=== PATIENT | male | born 1955 | race African-American/Black ===

== ENCOUNTER 2018-01-02 18:03 | Inpatient (IN) | payer OTHER ==
[~2018-01-02] VITALS: Ht 175.3 cm; Wt 87.1 kg
[~2018-01-02 18:03] MED LIST: ACETAMINOPHEN325 M1 PO; ALTACE5 M1 PO; AMLODIPINE BESY10 MG PO; ANTIBIOTIC PO; ARIXTRA2.5 MG/0.5 SQ; ASPIRIN EC81 M1 PO; ASPIRIN81 M2 PO; ATORVASTATIN CA40 MG PO; COUMADIN 3 MG TA3 M1 PO; EFFIENT10 MG PO; GABAPENTIN 100100 MG; IBUPROFEN 400400 M2 PO; INVOKANA300 MG PO; LANTUS SUBQ; LIPITOR40 MG PO; LISINOPRIL2.5 MG PO; NEURONTIN 300300 M1 PO; NITROGLYCERIN0.4 MG SUBLING; NORCO 5-325 TA1 EACH PO; NORVASC 5 MG TAB5 MG PO; NOVOLOG100 UNIT/1 SQ; NOVOLOG100 UNIT/1 SUBQ; SIMVASTATIN40 MG PO; TOPROL XL100 MG; TOPROL XL25 MG PO; TOPROL XL50 MG PO; TYLENOL325 MG PO; VOLTAREN75 MG; WELLBUTRIN SR100 MG PO
[2018-01-02 18:06] VITALS: BP 142/94
[2018-01-02] MEDS ORDERED: LISINOPRIL5 MG PO (18:09)
[2018-01-02 18:48] LABS: ABSOLUTE LYMPHOCYTES 1.2 thou/uL (0.8-5.3); ABSOLUTE MONOCYTES 0.3 thou/uL (0.0-1.2); ABSOLUTE NEUTROPHILS 5.8 thou/uL (1.6-8.1); BASOPHILS 0.3 %; EOSINOPHILS 0.4 %; HEMATOCRIT 41.9 % (42.0-52.0); HEMOGLOBIN 14.4 gm/dL (14.0-18.0); LYMPHOCYTES 16.3 %; MCH 28.9 pg (26.0-34.0); MCHC 34.3 g/dL (28.0-37.0); MCV 84.3 fL (80.0-100.0); MPV 8.2 fl. (7.2-11.1); NUCLEATED RBCS 0 /100WBC; PLATELET COUNT* 168 thou/uL (150-400); RBC 4.97 mil/uL (4.50-6.00); RDW-CV 14.3 % (10.5-14.5); WBC 7.3 thou/uL (4.0-11.0)
[2018-01-02 18:56] LABS: ANION GAP 7 mmol/L (7-16); BUN 20 mg/dL (7-18); CALCIUM 9.4 mg/dL (8.5-10.1); CHLORIDE 100 mmol/L (98-107); CO2 30 mmol/L (21-32); CREATININE 1.4 mg/dL (0.6-1.3); GLUCOSE 341 mg/dL (70-99); POTASSIUM 4.2 mmol/L (3.5-5.1); SODIUM 137 mmol/L (136-145)
[2018-01-02 18:58] LABS: APTT 25.7 Seconds (25.0-31.3); INR 1.1; PROTIME 10.6 Seconds (9.20-11.50)
[2018-01-02 19:15] LABS: ALBUMIN 4.2 g/dL (3.4-5.0); ALKALINE PHOSPHATASE 97 U/L (46-116); CK-MB MASS 5.2 ng/mL (<0.5-3.6); LIPASE 104 U/L (73-393); NT-PRO BRAIN NAT PEPTIDE 401 pg/mL (<300); SGOT 167 U/L (15-37); SGPT 119 U/L (30-65); TOTAL BILIRUBIN 1.8 mg/dL (<0.1-1.0); TOTAL PROTEIN 8.7 g/dL (6.4-8.2); TROPONIN-I LEVEL <0.06 ng/mL (<0.06)
[2018-01-02 21:11] VITALS: BP 161/91
[2018-01-02 23:03] VITALS: BP 158/92
[2018-01-03 00:02] VITALS: BP 141/79
[2018-01-03 04:00] VITALS: BP 118/69
--- NOTE | 2018-01-03 05:37 | NUR ---
PT ADMITTED FROM ER. HISTORY AND ASSESSMENT COMPLETE. SR ON MONITOR. IVF INFUSING. O2 2L NC. NPO. ORIENTED TO ROOM, BED CONTROLS, AND CALL LIGHT.
[2018-01-03 06:44] LABS: ABSOLUTE LYMPHOCYTES 1.2 thou/uL (0.8-5.3); ABSOLUTE MONOCYTES 0.3 thou/uL (0.0-1.2); ABSOLUTE NEUTROPHILS 3.4 thou/uL (1.6-8.1); BASOPHILS 0.2 %; EOSINOPHILS 0.7 %; HEMATOCRIT 37.5 % (42.0-52.0); HEMOGLOBIN 12.8 gm/dL (14.0-18.0); LYMPHOCYTES 23.7 %; MCH 28.5 pg (26.0-34.0); MCHC 34.1 g/dL (28.0-37.0); MCV 83.7 fL (80.0-100.0); MONOCYTES 6.1 %; MPV 8.2 fl. (7.2-11.1); NUCLEATED RBCS 0 /100WBC; PLATELET COUNT* 161 thou/uL (150-400); POLYS 69.3 %; RBC 4.48 mil/uL (4.50-6.00); RDW-CV 13.8 % (10.5-14.5); WBC 4.9 thou/uL (4.0-11.0)
[2018-01-03 06:59] LABS: ALBUMIN 3.1 g/dL (3.4-5.0); ALKALINE PHOSPHATASE 116 U/L (46-116); ANION GAP 7 mmol/L (7-16); BUN 16 mg/dL (7-18); CALCIUM 8.5 mg/dL (8.5-10.1); CHLORIDE 105 mmol/L (98-107); CO2 27 mmol/L (21-32); CREATININE 1.1 mg/dL (0.6-1.3); GLUCOSE 233 mg/dL (70-99); POTASSIUM 3.7 mmol/L (3.5-5.1); SGOT 254 U/L (15-37); SGPT 235 U/L (30-65); SODIUM 139 mmol/L (136-145); TOTAL BILIRUBIN 0.8 mg/dL (<0.1-1.0); TOTAL PROTEIN 6.8 g/dL (6.4-8.2); TROPONIN-I LEVEL <0.06 ng/mL (<0.06)
[2018-01-03 08:25] VITALS: BP 114/69
--- NOTE | 2018-01-03 11:59 | EKG ---
[place] [address] ELECTROCARDIOGRAM REPORT Name: ONEL PAULINO Room: [place] [address] ADM IN M.R.#: [id number] Admission: 01/02/18 Attend Phys: Yo Gonzales MD Discharge: Date of : 59 Report #: [id number] THIS REPORT FOR: //name// [facility] Test Date: 2018-01-02 Test Time: 18:07:53 Pat Name: ONEL PAULINO Department: Room: [facility] Gender: Alteration Workroom Supervisor: : 1955 Requested By: Beck López Order Number: [id number] MD: Bharath Gallo Measurements Intervals [place] Rate: 81 P: 38 LA: 161 QRS: -25 QRSD: 146 T: 74 QT: 436 QTc: 506 Interpretive Statements Sinus rhythm IVCD 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
--- NOTE | 2018-01-03 12:08 | EKG ---
[place] [address] ELECTROCARDIOGRAM REPORT Name: ONEL PAULINO Room: [place] [address] ADM IN M.R.#: [id number] Admission: 01/02/18 Attend Phys: Yo Gonzales MD Discharge: Date of : 59 Report #: [id number] THIS REPORT FOR: //name// [facility] Test Date: 2018-01-03 Test Time: 00:24:11 Pat Name: ONEL PAULINO Department: Room: [place] [address] Gender: M Cradle Placer: BEATRICE : 1955 Requested By: Eliud Fuentes Order Number: [id number] Stella MD: Bharath Gallo Measurements Intervals [place] Rate: 81 P: 39 MA: 171 QRS: -12 QRSD: 148 T: 109 QT: 421 QTc: 489 Interpretive Statements Sinus rhythm Left bundle branch block Baseline wander in lead(s) V1,V2 Electronically Signed On 01-03-2018 12:08:14 SECONDARY SET UP MAN by Bharath Gallo [email or web address] <ELECTRONICALLY SIGNED> By: Bharath Gallo MD, [facility] 01/03/18 1208 0024 0024 Bharath Gallo MD, [facility] /EPI
--- NOTE | 2018-01-03 12:11 | NUR ---
ASSUMED RESPONSIBILITY OF PT THIS AM PT C/O CP/EPIGASTRIC PAIN UPON ADMISSION DENIES PAIN AT THIS TIME HAS BEEN NPO FOR A CARDIOLOGY CONSULT AND FOR THEM TO CLEAR FOR POSSIBLE SURGERY CHOLECYSTECTOMY TROPS HAVE BEEN NEGATIVE BLOOD SUGARS STILL SLIGHTLY ELEVATED SBA TO THE BATHROOM NS AT 100ML/H IN RAC NSR ON THE MONITOR AT BEDSIDE CALL LIGHT IN REACH
--- NOTE | 2018-01-03 12:12 | EKG ---
[place] [address] ELECTROCARDIOGRAM REPORT Name: ONEL PAULINO Room: [place] [address] ADM IN M.R.#: [id number] Admission: 01/02/18 Attend Phys: Yo Gonzales MD Discharge: Date of : 59 Report #: [id number] THIS REPORT FOR: //name// [facility] Test Date: 2018-01-03 Test Time: 06:23:23 Pat Name: ONEL PAULINO Department: Room: [place] [address] Gender: M Wirer Helper: BEATRICE : 1955 Requested By: Eliud Fuentes Order Number: [id number] Stella MD: Bharath Gallo Measurements Intervals [place] Rate: 77 P: 44 MT: 181 QRS: -5 QRSD: 144 T: 119 QT: 425 QTc: 482 Interpretive Statements Sinus rhythm Left bundle branch block Baseline wander in lead(s) V1 Electronically Signed On 01-03-2018 12:12:19 RING BARKER OPERATOR by Bharath Gallo [email or web address] <ELECTRONICALLY SIGNED> By: Bharath Gallo MD, [facility] 01/03/18 1212 2 2 Bharath Gallo MD, [facility] /EPI
--- NOTE | 2018-01-03 12:27 | NUR ---
MET WITH PT AND TO DISCUSS HOME SITUATION/DC PLANNING. PT LIVES WITH , WORKS AND IS INDEPENDENT AND ACTIVE. USES NO EQUIPMENT AND HASN'T HAD HH. PT STATES FEELING BETTER AND HOPES TO GO HOME SOON. WILL FOLLOW
[2018-01-03 12:29] VITALS: BP 112/62
[2018-01-03 16:15] VITALS: BP 119/70
--- NOTE | 2018-01-03 18:41 | NUR ---
PT COMPLAINED OF PAIN AND GOT MORPHINE WHICH HELPED PT RESTING IN BED WITH FAMILY AT BEDSIDE [facility] SURGERY CAME TO SEE PT PT SAID THEY WOULD DISCUSS PLANS TOMORROW CALL LIGHT IN REACH NO CONCERNS AT THIS TIME
[2018-01-03 20:00] VITALS: BP 149/88
[2018-01-04 00:03] VITALS: BP 141/89
[2018-01-04 04:00] VITALS: BP 129/81
--- NOTE | 2018-01-04 05:29 | NUR ---
PT CARE ASSUMED AFTER REPORT. ASSESSMENT COMPLETE. SR/1ST DEGREE ON MONITOR. IVF INFUSING. DENIES PAIN. UP AD ALEX WITH STEADY GAIT. CALL LIGHT IN REACH. BED IN LOWEST POSITION. PROGRESSING TOWARDS GOALS.
[2018-01-04 05:54] LABS: ABSOLUTE EOSINOPHILS 0.1 thou/uL (0.0-0.7); ABSOLUTE LYMPHOCYTES 1.5 thou/uL (0.8-5.3); ABSOLUTE MONOCYTES 0.2 thou/uL (0.0-1.2); ABSOLUTE NEUTROPHILS 1.5 thou/uL (1.6-8.1); BASOPHILS 0.8 %; HEMATOCRIT 33.3 % (42.0-52.0); HEMOGLOBIN 11.4 gm/dL (14.0-18.0); LYMPHOCYTES 44.7 %; MCH 29.2 pg (26.0-34.0); MCHC 34.3 g/dL (28.0-37.0); MCV 85.3 fL (80.0-100.0); MONOCYTES 6.9 %; MPV 8.2 fl. (7.2-11.1); NUCLEATED RBCS 0 /100WBC; PLATELET COUNT* 126 thou/uL (150-400); POLYS 45.6 %; RBC 3.91 mil/uL (4.50-6.00); RDW-CV 14.2 % (10.5-14.5); WBC 3.3 thou/uL (4.0-11.0)
[2018-01-04 06:22] LABS: ALBUMIN 2.7 g/dL (3.4-5.0); CALCIUM 7.9 mg/dL (8.5-10.1); CREATININE 1.1 mg/dL (0.6-1.3); TOTAL BILIRUBIN 0.4 mg/dL (<0.1-1.0)
[2018-01-04 08:00] VITALS: BP 149/89
--- NOTE | 2018-01-04 10:50 | NUR ---
ASSUMED RESPONSIBILITY OF PT THIS AM PT IS ALERT AND ORIENTED DENIES ANY PAIN AT THIS TIME NSR ON THE MONITOR BBB NOTED AT TIMES ACHS AND REQUIRES INSULIN EACH MEAL ATE 100% OF BREAKFAST SURGERY PLANS TO DO OUTPATIENT PER PATIENT BUT PATIENT STATED HE WANTED TO TALK TO HIS PLAN FOR A DC TODAY UP AD ALEX WILL CONT TO MONITOR CALL LIGHT IN REACH AT BEDSIDE
[2018-01-04 12:00] VITALS: BP 132/75
--- NOTE | 2018-01-04 13:28 | CON ---
[address] [address] CONSULTATION Name: ONEL PAULINO Room: [address] IN [place].#: [id number] Admission: 01/02/18 Attend Phys: Yo Gonzales MD Discharge: Date of : 59 Report #: [id number] THIS REPORT FOR: //name// CC: Yo Quick DATE OF SERVICE: 01/03/2018 HISTORY OF PRESENT ILLNESS: The patient is a 62-year-old black male who I was asked to see in the hospital today after he complained of chest pain. The patient initially presented in 2012 with sudden cardiac while shoveling snow. He was brought here to [place] and a code ice was activated. He was found to have evidence of a cardiomyopathy. He eventually awakened from his cardiac arrest and was extubated. He recovered and was then transferred to [facility] and had a coronary stent placed. He eventually had a defibrillator implanted at [facility]. A year ago, he was found to have progression of his aortic stenosis and complained of chest pain. In 02/2017, he underwent aortic valve replacement using a tissue valve and 2-vessel bypass surgery at [facility]. He then had a prolonged post-postoperative course complicated by heparin-induced thrombocytopenia. He suffered a cardiac arrest and was intubated. He had difficulty getting off the ventilator. He developed renal failure, although he was never dialyzed. He eventually was discharged. He had an echocardiogram in March showing an ejection fraction of 60% with normal prosthetic valve function. Carotid Doppler study showed no significant stenosis. I last saw him in the Cardiology clinic in October when he was doing well. He stays active. Denies any recent chest pain, shortness of breath, palpitation, syncope, edema. The patient was doing well until yesterday. He was driving to work in his car when he suddenly felt an epigastric discomfort, described as sharp pain. No shortness of breath, diaphoresis, nausea, vomiting. He had no recent bleeding, fever, cough, trauma to his chest. He then drove himself to the Emergency Room here. I was asked to see him for further evaluation and treatment. PAST MEDICAL HISTORY: Otherwise significant for knee surgery. He does have a history of diabetes, hypertension and hyperlipidemia. MEDICATIONS: Consist of aspirin, Lipitor, Cymbalta, Neurontin, insulin, Prinivil, metoprolol. ALLERGIES: He has an allergy to SULFA DRUGS. FAMILY HISTORY: His mother had heart disease. SOCIAL HISTORY: He is . He and his live in [place]. 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 [address] CONSULTATION Name: YASIRMAXONEL Saxena Room: [address] IN [facility]#: [id number] Admission: 01/02/18 Attend Phys: Yo Gonzales MD Discharge: Date of : 59 Report #: [id number] abuse. REVIEW OF SYSTEMS: He has had no history of stroke, asthma, peptic ulcer disease, liver disease, cancer, psychiatric illness. PHYSICAL EXAMINATION: GENERAL: Revealed a middle-aged black male lying in bed, he appeared in no distress. VITAL SIGNS: Blood pressure 110/60, pulse 70, he is afebrile. HEENT: He is anicteric. Conjunctivae pink. Mucous membranes moist. NECK: Veins nondistended. Gradient systolic murmur is noted in the carotid. CHEST: Clear to auscultation. CARDIOVASCULAR: Regular rate and rhythm, grade 3 systolic ejection murmur. ABDOMEN: Soft, nontender. EXTREMITIES: Had no edema. Posterior tibial pulse 2+ bilaterally. SKIN: Warm, dry. NEUROLOGIC: Nonfocal. LYMPH: No adenopathy. MUSCULOSKELETAL: No joint effusion. LABORATORY DATA: His ECG shows a sinus rhythm with a left bundle-branch block. His workup so far, he had a chest x-ray yesterday that showed normal heart size and clear lung vela. CT scan of the chest using a PE protocol showed no pulmonary embolus or aortic dissection. Ultrasound of the abdomen showed gallstones with gallbladder sludge consistent with cholecystitis. CT scan of the abdomen showed gallstones, gallbladder dilatation, mild ileus. His lab work: Sodium 139, BUN 16, creatinine 1.1, glucose 233, SGOT 254, bilirubin 0.8, alkaline phosphatase 116, SGPT 235. His troponin 0.06. His white blood cell count was 4.9, hemoglobin 12.8. IMPRESSION AND RECOMMENDATIONS: 1. Cholecystitis. The patient might require cholecystectomy. The patient appears to have no cardiac contraindication to gallbladder surgery. I would hold his aspirin at this time and continue his beta gavino. I would suggest turning therapy off, so that no shocks will be delivered during surgery from his defibrillator. 2. Hypertension. The patient has been on a beta gavino and JACOB inhibitor. 3. Diabetes. 4. Hyperlipidemia. The patient is on a statin drug. 5. History of heparin-induced thrombocytopenia. 6. Previous implantation of defibrillator[place] [address] CONSULTATION Name: ONEL PAULINO Room: [address]#: [id number] Admission: 01/02/18 Attend Phys: Yo Gonzales MD Discharge: Date of : 59 Report #: [id number] 7. Previous aortic valve replacement using a tissue valve. Valve appears to be functioning normally. <ELECTRONICALLY SIGNED> By: Bharath Gallo MD, FACC 01/04/18 1328 1434 2014Dagrecia Gallo MD, FACC /nt
[2018-01-04 16:00] VITALS: BP 136/88
--- NOTE | 2018-01-04 18:30 | NUR ---
PT STAYS D/T BLOOD SUGARS TOO HIGH AND HGBA1C AROUND 11 LAST TIME IT WAS CHECKED ACCORDING TO DR CHANCE WANTED TO REGULATE IT MORE BEFORE PT LEFT PT UPSET BUT STAYED BS AT [facility] WAS 307 AND PT GOT 9U DENIES ANY PAIN UP AD ALEX WILL CONT TO MONITOR
[2018-01-04 20:30] VITALS: BP 155/82
[2018-01-05] VITALS: BP 151/83
[2018-01-05 04:00] VITALS: BP 155/85
--- NOTE | 2018-01-05 04:58 | NUR ---
A&O X4 CALM COOPERITVE. PT ADLIB. RA. ACCU CHECKS. SR BBB ON THE MONITOR. VITALS WNL. HOURLY ROUNDING FOR SAFETY.
[2018-01-05 05:07] LABS: HEMOGLOBIN 11.6 gm/dL (14.0-18.0); MCHC 34.1 g/dL (28.0-37.0); MCV 85.1 fL (80.0-100.0); MPV 8.2 fl. (7.2-11.1); RDW-CV 13.9 % (10.5-14.5); WBC 3.8 thou/uL (4.0-11.0)
[2018-01-05 05:23] LABS: CALCIUM 8.3 mg/dL (8.5-10.1); MAGNESIUM 1.9 mg/dL (1.8-2.4); POTASSIUM 3.7 mmol/L (3.5-5.1)
[2018-01-05 08:00] VITALS: BP 142/86
--- NOTE | 2018-01-05 09:53 | NUR ---
ASSUMED RESPONSIBILITY OF PT THIS AM BLOOD SUGAR WAS 157 AND 3U GIVEN PT IS ALERT AND ORIENTED X4 DENIES ANY PAIN AT THIS TIME JUST 'BORED' PT IS UP AD AELX LBM T-1 'NORMAL' ACCORDING TO PT , NO DIFFICULTIES WITH URINE OR OTHER CONCERNS CALL LIGHT IN REACH WOULD 'JUST LIKE TO GO HOME' WILL CONT TO MONITOR
[2018-01-05 12:00] VITALS: BP 113/69
[2018-01-05 16:00] VITALS: BP 142/81
--- NOTE | 2018-01-05 18:12 | NUR ---
PT TO DISCHARGE HOME INSTRUCTIONS GIVEN TO PT TO FOLLOW UP WITH SURGERY CONT TO CONTROL BLOOD SUGARS
[2018-01-05 18:14] VITALS: BP 142/81
[2018-01-05] MEDS ORDERED: CIPRO500 MG PO (18:20)
[2018-01-05] MEDS ORDERED: FLAGYL500 MG PO (18:21)
[2018-01-27] MEDS ORDERED: CYMBALTA60 MG PO (14:35)
[2018-02-05] MEDS ORDERED: HYDROCODONE-AP1 EAC6 PO (15:19)
== END 2018-01-05 18:44 | disposition home or self-care (01) | DRG 445 ==
LOC: M.ERS 18:03 → M.2W 20:24 → M.TBA-ER 20:24 → M.2W 22:39
PROVIDERS: Emergency Medicine; Family Medicine; Surgery; ADMIT Internal Medicine
DX: K80.00 Calculus of gallbladder with acute cholecystitis without obstruction (principal); I38 Endocarditis, valve unspecified; N17.9 Acute kidney failure, unspecified; R65.10 Systemic inflammatory response syndrome (SIRS) of non-infectious origin without acute organ dysfunction; I10 Essential (primary) hypertension; E11.319 Type 2 diabetes mellitus with unspecified diabetic retinopathy without macular edema; I25.10 Atherosclerotic heart disease of native coronary artery without angina pectoris; E78.5 Hyperlipidemia, unspecified; M19.90 Unspecified osteoarthritis, unspecified site; E11.65 Type 2 diabetes mellitus with hyperglycemia; Z88.0 Allergy status to penicillin; Z88.8 Allergy status to other drugs, medicaments and biological substances; Z95.5 Presence of coronary angioplasty implant and graft; Z86.73 Personal history of transient ischemic attack (TIA), and cerebral infarction without residual deficits; Z95.0 Presence of cardiac pacemaker; Z88.2 Allergy status to sulfonamides; Z82.49 Family history of ischemic heart disease and other diseases of the circulatory system; Z95.2 Presence of prosthetic heart valve; Z79.82 Long term (current) use of aspirin; Z79.899 Other long term (current) drug therapy; Z95.1 Presence of aortocoronary bypass graft; Z79.4 Long term (current) use of insulin; Z86.74 Personal history of sudden cardiac arrest

== ENCOUNTER 2018-01-13 20:43 | Inpatient (IN) | payer OTHER ==
[~2018-01-13] VITALS: Ht 175.3 cm; Wt 83.9 kg
[~2018-01-13 20:43] MED LIST changes: +CIPRO500 MG PO; +FLAGYL500 MG PO; +LISINOPRIL5 MG PO
[2018-01-13 20:44] VITALS: BP 143/87
[2018-01-13 21:14] LABS: BE -1.7 mmol/L (-2 to +3); PCO2 44.2 mmHg (35.0-45.0); PO2 96.8 mmHg (75.0-100.0); pH 7.352 (7.340-7.450)
[2018-01-13 22:05] LABS: INFLUENZA A ANTIGEN None Detected (None Detect); INFLUENZA B ANTIGEN None Detected (None Detect)
[2018-01-13 22:06] LABS: ABSOLUTE LYMPHOCYTES 1.2 thou/uL (0.8-5.3); ABSOLUTE MONOCYTES 0.3 thou/uL (0.0-1.2); ABSOLUTE NEUTROPHILS 7.6 thou/uL (1.6-8.1); BASOPHILS 0.2 %; EOSINOPHILS 0.3 %; HEMATOCRIT 47.2 % (42.0-52.0); HEMOGLOBIN 15.7 gm/dL (14.0-18.0); LYMPHOCYTES 13.4 %; MCH 29.1 pg (26.0-34.0); MCHC 33.3 g/dL (28.0-37.0); MCV 87.6 fL (80.0-100.0); MONOCYTES 2.8 %; MPV 8.1 fl. (7.2-11.1); NUCLEATED RBCS 0 /100WBC; PLATELET COUNT* 187 thou/uL (150-400); POLYS 83.3 %; RBC 5.39 mil/uL (4.50-6.00); WBC 9.1 thou/uL (4.0-11.0)
[2018-01-13 22:37] LABS: CALCIUM 9.9 mg/dL (8.5-10.1); CREATININE 2.1 mg/dL (0.6-1.3); POTASSIUM 4.3 mmol/L (3.5-5.1)
[2018-01-13 22:44] LABS: ALBUMIN 4.3 g/dL (3.4-5.0); TOTAL BILIRUBIN 0.6 mg/dL (<0.1-1.0); TOTAL PROTEIN 8.3 g/dL (6.4-8.2); TROPONIN-I LEVEL 0.11 ng/mL (<0.06)
[2018-01-14] VITALS (15 sets, daily range): BP systolic 97–140; BP diastolic 48–82
[2018-01-14 08:00] LABS: CALCIUM 8.5 mg/dL (8.5-10.1); CREATININE 1.3 mg/dL (0.6-1.3); POTASSIUM 4.3 mmol/L (3.5-5.1); TROPONIN-I LEVEL 0.15 ng/mL (<0.06)
[2018-01-14 08:33] LABS: URINE BILIRUBIN NEGATIVE (Negative); URINE BLOOD NEGATIVE (Negative); URINE CLARITY CLEAR; URINE COLOR YELLOW; URINE GLUCOSE-RANDOM 3+ (Negative); URINE KETONES 1+ (Negative); URINE LEUKOCYTES-REFLEX NEGATIVE (Negative); URINE NITRITE-REFLEX NEGATIVE (Negative); URINE PROTEIN NEGATIVE (Negative); URINE SPECIFIC GRAVITY 1.025 (1.005-1.030); URINE UROBILINOGEN 0.2 E.U./dl (0.2-1.0)
[2018-01-14 08:41] LABS: AMP/METHAMP Negative (Negative); BARBITURATES Negative (Negative); BENZODIAZEPINES Negative (Negative); COCAINE Negative (Negative); METHADONE Negative (Negative); OPIATES Negative (Negative); PCP Negative (Negative); THC Negative (Negative)
--- NOTE | 2018-01-14 10:58 | EKG ---
[place] [address] ELECTROCARDIOGRAM REPORT Name: ONEL PAULINO Room: [address] ADM IN .R.#: [id number] Admission: 01/13/18 Attend Phys: Rafita Nicholson, Discharge: Date of : 59 Report #: [id number] THIS REPORT FOR: //name// [facility] ED Test Date: 2018-01-13 Test Time: 20:49:31 Pat Name: ONEL PAULINO Department: Room: [facility] Gender: M Dog Sitter: VIRGILIO : 1955 Requested By: Pedro Levy Order Number: [id number] MD: Bharath Gallo Measurements Intervals [place] Rate: 84 P: 77 IA: 191 QRS: 80 QRSD: 149 T: 236 QT: 432 QTc: 511 Interpretive Statements Sinus rhythm LBBB Compared to ECG 01/03/2018 06:23:23 no change Electronically Signed On 01-14-2018 10:58:43 HUMAN RESOURCES VICE PRESIDENT by Bharath Gallo [email or web address] <ELECTRONICALLY SIGNED> By: Bharath Gallo MD, [facility] 01/14/18 1058 48 48 Bharath Gallo MD, FACC /EPI
--- NOTE | 2018-01-14 11:03 | EKG ---
[place] [address] ELECTROCARDIOGRAM REPORT Name: ONEL PAULINO Room: [address] ADM IN .R.#: [id number] Admission: 01/13/18 Attend Phys: Rafita Nicholson, Discharge: Date of : 59 Report #: [id number] THIS REPORT FOR: //name// [facility] ED Test Date: 2018-01-13 Test Time: 22:56:39 Pat Name: ONEL PAULINO Department: Room: [facility] Gender: M Aircraft Maintenance Engineer: VIRGILIO : 1955 Requested By: Pedro Levy Order Number: [id number] MD: Bharath Gallo Measurements Intervals [place] Rate: 79 P: 47 AK: 170 QRS: 41 QRSD: 146 T: 232 QT: 438 QTc: 503 Interpretive Statements Sinus rhythm Left bundle branch block Electronically Signed On 01-14-2018 11:02:45 CAT SCANNER OPERATOR by Bharath Gallo [email or web address] <ELECTRONICALLY SIGNED> By: Bharath Gallo MD, [facility] 01/14/18 1102 2256 2256 Bharath Gallo MD, FACC /EPI
--- NOTE | 2018-01-14 14:26 | 2DMMODE ---
[place] [address] 2 D/M-MODE ECHOCARDIOGRAM Name: ONEL PAULINO Room: [address] IN [facility]#: [id number] Admission: 01/13/18 Attend Phys: Rafita Dash Discharge: Date of : 59 Date of Service: 01/14/18 1426 Report #: [id number] THIS REPORT FOR: //name// APPROVED REPORT Study performed: 01/14/2018 11:05:19 EXAM: Comprehensive 2D, Doppler, and color-flow Echocardiogram Patient Location: In-Patient Room #: [facility] Status: routine BSA: 1.98 HR: 82 bpm BP: 112/76 mmHg Rhythm: NSR Other Information Study Quality: Good Indications Elevated Troponin Near syncope, AMS, renal failure 2D Dimensions LVEF(%): 57.85 (>50%) IVSd: 17.37 (7-11mm) LVOT Diam: 18.99 (18-24mm) LVDd: 37.75 mm PWd: 12.73 (7-11mm) LVDs: 26.46 (25-40mm) Aortic Root: 26.64 mm Ellis's LVEF: 57.85 % Volumes Left Atrial Volume (Systole) LA ESV Index: 25.00 mL/m2 Aortic Valve AoV Peak Antelmo.: 2.66 m/s AO Peak Gr.: 28.33 mmHg LVOT Max P.74 mmHg AO Mean Gr.: 17.43 mmHg LVOT Mean P.03 mmHg LVOT Max V: 0.97 m/s AO V2 VTI: 45.60 cm LVOT Mean V: 0.67 m/s SHAHLA (VTI): 1.16 cm2 LVOT V1 VTI: 18.62 [place] [address] 2 D/M-MODE ECHOCARDIOGRAM Name: ONEL PAULINO Room: [address]#: [id number] Admission: 01/13/18 Attend Phys: Rafita Dash Discharge: Date of : 59 Date of Service: 01/14/18 1426 Report #: [id number] E/A Ratio: 1.25 MV Decel. Time: 252.78 ms MV E Max Antelmo.: 0.94 m/s MV PHT: 73.31 ms MVA (PHT): 3.00 cm2 TDI E/Lateral E': 11.75 E/Medial E': 11.75 Medial E' Antelmo.: 0.08 m/s Lateral E' Antelmo.: 0.08 m/s Pulmonary Valve PV Peak Antelmo.: 0.87 m/s PV Peak Gr.: 3.04 mmHg Left Ventricle The left ventricle is normal size. There is normal LV segmental wall motion. Mild to moderate concentric left ventricular hypertrophy. Left ventricular systolic function is normal. The left ventricular ejection fraction is within the normal range. LVEF is 60-65%. Transmitral Doppler flow pattern suggests impaired LV relaxation. Right Ventricle The right ventricle is normal size. The right ventricular systolic function is normal. Pacemaker lead is present in the right ventricle. Atria The left atrium size is normal. The right atrium size is normal. Aortic Valve Bioprosthetic aortic valve is present. No aortic regurgitation is present. No significant stenosis noted. Mitral Valve The mitral valve is normal in structure. Trace mitral regurgitation. No evidence of mitral valve stenosis. Tricuspid Valve The tricuspid valve is normal in structure. Trace tricuspid regurgitation. Unable to assess PA pressure. Pulmonic Valve The pulmonary valve is normal in structure. There is no pulmonic [place] [address] 2 D/M-MODE ECHOCARDIOGRAM Name: ONEL PAULINO Room: [address] IN [facility]#: [id number] Admission: 01/13/18 Attend Phys: Rafita Dash Discharge: Date of : 59 Date of Service: 01/14/18 1426 Report #: [id number] Great Vessels The aortic root is normal in size. IVC is normal in size and collapses with >50% inspiration Pericardium There is no pericardial effusion. <Conclusion> The left ventricle is normal size. Mild to moderate concentric left ventricular hypertrophy. Left ventricular systolic function is normal. The left ventricular ejection fraction is within the normal range. LVEF is 60-65%. Transmitral Doppler flow pattern suggests impaired LV relaxation. Bioprosthetic aortic valve is present. No aortic regurgitation is present. No significant stenosis noted. Trace mitral regurgitation. IVC is normal in size and collapses with >50% inspiration <ELECTRONICALLY SIGNED> By: Brandon Lynch MD, FACC 01/14/18 1426 1426 1426 Brandon Lynch MD, FACC /INF
[2018-01-15] VITALS (7 sets, daily range): BP systolic 107–151; BP diastolic 63–86
[2018-01-15 05:03] LABS: HEMATOCRIT 36.7 % (42.0-52.0); MCH 28.7 pg (26.0-34.0); MCHC 33.5 g/dL (28.0-37.0); MCV 85.8 fL (80.0-100.0); MPV 7.9 fl. (7.2-11.1); RBC 4.28 mil/uL (4.50-6.00); RDW-CV 14.3 % (10.5-14.5); WBC 5.9 thou/uL (4.0-11.0)
[2018-01-15 05:22] LABS: HEMOGLOBIN 12.3 gm/dL (14.0-18.0)
[2018-01-15 05:49] LABS: ALBUMIN 2.9 g/dL (3.4-5.0); CALCIUM 8.5 mg/dL (8.5-10.1); POTASSIUM 4.1 mmol/L (3.5-5.1); TOTAL BILIRUBIN 0.4 mg/dL (<0.1-1.0); TROPONIN-I LEVEL 0.06 ng/mL (<0.06)
--- NOTE | 2018-01-16 11:53 | CON ---
[address] [address] CONSULTATION Name: ONEL PAULINO Room: [address] IN .[place].#: [id number] Admission: 01/13/18 Attend Phys: Rafita Nicholson, Discharge: 01/15/18 Date of : 59 Report #: [id number] THIS REPORT FOR: //name// CC: Rafita Quick DATE OF SERVICE: 01/14/2018 HISTORY OF PRESENT ILLNESS: This is a 62-year-old male patient who was evaluated by me for any neurological etiology for the patient's dizziness. He was seen by me at one time for dizziness that was in 2014. He went for aortic valve surgery and rather did well and then he was working and then he noticed he was feeling dizzy. His blood sugar was very high. He does not know what the blood pressure was. He did not notice any tonic-clonic activity and there was no seizure activity noticed. He also is going to be evaluated by Cardiology for his symptoms. Some of the records indicate that he also may have been hypotensive at that time. REVIEW OF SYSTEMS: Indicate that this patient has a headache now and it is mostly in the occipital area. He does have a history of defibrillator. He has a history of cardiac arrest, CABG, stent, problem with right meniscus. Record indicate he also has heparin-induced ____ thrombocytopenia. That was his relevant 14-point review of systems. PAST MEDICAL HISTORY: Positive for syncope. FAMILY HISTORY: Negative for congenital epilepsy. SOCIAL HISTORY: He does not smoke or drink alcohol. PHYSICAL EXAMINATION: The patient's examination indicate he is alert, responsive, able to follow simple and complex command. Cranial nerve examination 2-12 looks unremarkable. Neuromuscular examination does not show any asymmetry of strength, sensation, reflexes and tone. There is no cerebellar sign. There is no papilledema. There is no carotid bruit. Cardiac examination is positive for defibrillator. Respiratory examination showed no respiratory difficulty or rhonchi. He is a well-developed, well-nourished individual who does not have any dysmorphic features of eyes, ears and face. Blood pressure is 123/76, respirations 18, pulse is 87 and temperature 97.9. LABORATORY DATA: White count is 9.1. GFR is 68. IMPRESSION: I do not believe this patient's symptoms are neurological in origin, but his headache is worrisome. Because of that, I will do some work [place] [address] CONSULTATION Name: ONEL PAULINO Room: [address]#: [id number] Admission: 01/13/18 Attend Phys: Rafita Nicholson, Discharge: 01/15/18 Date of : 59 Report #: [id number] RECOMMENDATION: 1. I recommended CT angio of the head and neck with venous phase look for venous thrombosis. 2. I will get an EEG. 3. I will check a sed rate. If that workup is unremarkable that will make it even less likely that the patient's symptoms were because of neurological etiology. All of it was discussed with the patient in detail and he wants to follow this plan. I spent more than 50 minutes of time taking care of this patient today and majority of the time was spent counseling the patient on above matters and including the pros and cons of angiogram and neuro workup in general and he wanted to follow this plan and coordinating his care. <ELECTRONICALLY SIGNED> By: Curtis Stearns MD 01/16/18 1153 1656 2123Plauren Stearns MD /nt
--- NOTE | 2018-01-16 11:53 | EEG ---
[address] [address] EEG STUDY REPORT Name: YASIRMAXONEL Room: [address] IN .R.#: [id number] Admission: 01/13/18 Attend Phys: Rafita Nicholson, Discharge: 01/15/18 Date of : 59 Report #: [id number] THIS REPORT FOR: //name// CC: Rafita Quick DATE OF SERVICE: 01/15/2018 This patient is being evaluated for an episode of syncope. The patient's background activity in this patient's EEG is about 9 Hz and 40 microvolts. The patient went to sleep that is associated with bilaterally symmetrical sleep spindle and vertex sharp waves. Photic stimulation is unremarkable. Throughout the record, no active epileptiform activity was noticed. IMPRESSION: This patient's EEG is unremarkable. Thank you very much for this referral. <ELECTRONICALLY SIGNED> By: Curtis Stearns MD 01/16/18 1153 1609 1652Plauren Stearns MD /nt
[2018-01-27] MEDS ORDERED: CYMBALTA60 MG PO (14:35)
[2018-02-05] MEDS ORDERED: HYDROCODONE-AP1 EAC6 PO (15:19)
== END 2018-01-15 16:54 | disposition home or self-care (01) | DRG 682 ==
LOC: M.ERS 20:43 → M.TBA-ER 23:20 → M.ICU 23:20 → M.2W 01-14 10:30
PROVIDERS: Emergency Medicine Emergency Medical Services; Internal Medicine; ADMIT Family Medicine
DX: N17.0 Acute kidney failure with tubular necrosis (principal); G93.41 Metabolic encephalopathy; I42.9 Cardiomyopathy, unspecified; E11.65 Type 2 diabetes mellitus with hyperglycemia; I95.9 Hypotension, unspecified; Z79.4 Long term (current) use of insulin; I10 Essential (primary) hypertension; E78.5 Hyperlipidemia, unspecified; M19.90 Unspecified osteoarthritis, unspecified site; I25.10 Atherosclerotic heart disease of native coronary artery without angina pectoris; E86.0 Dehydration; E11.319 Type 2 diabetes mellitus with unspecified diabetic retinopathy without macular edema; Z95.5 Presence of coronary angioplasty implant and graft; Z95.1 Presence of aortocoronary bypass graft; Z95.810 Presence of automatic (implantable) cardiac defibrillator; Z86.74 Personal history of sudden cardiac arrest; I25.2 Old myocardial infarction; Z90.49 Acquired absence of other specified parts of digestive tract; Z95.2 Presence of prosthetic heart valve; Z86.73 Personal history of transient ischemic attack (TIA), and cerebral infarction without residual deficits; Z79.899 Other long term (current) drug therapy; Z79.82 Long term (current) use of aspirin; Z88.8 Allergy status to other drugs, medicaments and biological substances; Z88.0 Allergy status to penicillin; Z91.030 Bee allergy status; Z82.49 Family history of ischemic heart disease and other diseases of the circulatory system; Z80.8 Family history of malignant neoplasm of other organs or systems; R33.9 Retention of urine, unspecified

== ENCOUNTER → 2018-02-05 | Day surgery (SDC) | payer OTHER ==
[~2018-02-05] VITALS: Ht 175.3 cm; Wt 82.6 kg
[~2018-02-05] MED LIST changes: +CYMBALTA60 MG PO; +HYDROCODONE-AP1 EAC6 PO
[2018-02-05 12:38] VITALS: BP 147/89
[2018-02-05 15:19] VITALS: BP 147/89
--- NOTE | 2018-02-07 15:15 | S ---
[place] [address] SURGICAL PATH RPT PROCEDURE Name: ONEL TRAMMELL Room: [facility]#: [id number] Admission: 02/05/18 Date of : 59 Discharge: Report #: [id number] Path Case #: [id number] PATHOLOGY REPORT COLLECTION DATE: 02/05/2018 RECEIVED DATE: 02/06/2018 SUBMITTING PHYS: Dr. Leonora Tejada OTHER PHYS: Leon Quick MD SPECIMEN(S) RECEIVED: A.Gallbladder and contents * * * * * * * * * * * * FINAL DIAGNOSIS: Gallbladder, "gallbladder, cholecystectomy": - Moderate chronic cholecystitis with cholelithiasis. (SHA:[facility]; 02/07/2018) PATHOLOGIST: Escobar Marr M.D. REPORT ELECTRONICALLY SIGNED BY: Escobar Marr M.D. DATE/TIME: 02/07/2018 15:14 * * * * * * * * * * * * GROSS PATHOLOGY: Received in formalin "Onel Trammell, gallbladder and contents" and consists of a glistening, dull blue rocha, green an intact gallbladder measuring 7.7 cm in length by 4.1 cm in diameter. The margin is inked. The lumen contains 10 ML's of tenacious green bile and multiple black brown calculi ranging in size from 0.3 cm-0.7 cm, and aggregating to 1.5 x 1.0 x 0.7 cm. The wall averages 0.2 cm thick. The mucosa is velvety and green. Web Press Roll Tender sections are submitted A1. (ROBERTO CARLOS; 02/06/2018) CLINICAL HISTORY: Gallbladder disease INITIAL CPT CODE(S): A; 98603 Professional services performed by [facility] at [facility] [address], [place] [address] Technical services performed by [facility] at [address] [place] [address], [facility] [address] [address]. [place] [address] SURGICAL PATH RPT PROCEDURE Name: ONEL TRAMMELL Room: [facility].#: [id number] Admission: 02/05/18 Date of : 59 Discharge: Report #: [id number] Path Case #: [id number] [place] [id number] [address] [address] PHONE: [phone] DIRECTOR: Zach Abernathy M.D. * * * END OF REPORT * * *
--- NOTE | 2018-02-11 08:51 | OP ---
[address] [address] OPERATIVE REPORT Name: ONEL PAULINO [facility] [id number] Admission: 02/05/18 Attend Phys: Leonora Tejada DO Discharge: Date of : 59 Report #: [id number] THIS REPORT FOR: //name// CC: Leonora Statonongvan Quick DATE OF SERVICE: 02/05/2018 PREPROCEDURE DIAGNOSES: Chronic cholecystitis with cholelithiasis. POSTPROCEDURE DIAGNOSES: Chronic cholecystitis with cholelithiasis. SURGEON: Leonora Tejada DO COSURGEON: Rubens Gibbons DO OPERATION PERFORMED: Laparoscopic cholecystectomy. ANESTHESIA: General endotracheal and local. EBL: 5. DRAINS: None. SPECIMEN: Gallbladder. COMPLICATIONS: None. CONDITION: Stable. DISPOSITION: PACU to home. HISTORY OF PRESENT ILLNESS: The patient is a very pleasant 62-year-old gentleman who was recently admitted to the hospital with multiple issues, one of which was abdominal pain. He was found to have some small gallstones in the gallbladder and he wished to proceed with a laparoscopic cholecystectomy. He was cleared by multiple consultants as he does have a very significant past medical history. Once that clearance was obtained, he was then consented for surgery. Risks discussed included bleeding, infection, pain, scar formation, injury to bowel, liver, bile duct, hernia at the incision sites, need for an open procedure and risks of general anesthesia. We did have a very long discussion about his very poor heart health and that he may have complications of both heart or lung issues. The patient understood these risks and elected to proceed. PROCEDURE NOTE: The patient was brought to the operating room. He was laid [address] [place] [address] OPERATIVE REPORT Name: ONEL PAULINO Room: [facility] Castro#: [id number] Admission: 02/05/18 Attend Phys: Leonora Tejada DO Discharge: Date of : 59 Report #: [id number] supine on the operating room table. SCDs were placed to bilateral lower extremities. Clindamycin was given in the perioperative period. General endotracheal anesthesia was induced by anesthesia without difficulty. Abdomen was prepped and draped in standard sterile fashion. Timeout was performed to verify patient and procedure. A 10 mL of 0.5% Marcaine were injected in the infraumbilical area. Incision was made with 11 blade. Cautery was used for hemostasis. S retractors were used to visualize the fascia. Fascia was grasped and elevated between 2 Kochers. Fascia was incised using cautery. Peritoneum was bluntly entered using a Mari clamp. Finger was swept into the abdomen to assure that there were no basil-incisional adhesions, none were identified. Two stitches of 0 Vicryl placed on the fascia. Ariana trocar was introduced and secured with 0 Vicryl stitches. Abdomen was insufflated. The patient was placed head up and tilted left side down. Camera was introduced and a brief anterior abdominal exploration was undertaken with findings of a hugely distended stomach and multiple dense adhesions over the right side of the liver. OG tube was placed with successful decompression of the stomach. Adhesions were taken down with a combination of blunt and cautery dissection. Gallbladder was then grasped and raised towards the patient's head. The peritoneum overlying the gallbladder was incised using cautery. Cystic duct was then readily visualized. It was circumferentially dissected free using a [place] dissector. Cystic artery was then identified just posterior. It was also circumferentially dissected free using a [place] dissector. Any tissues posterior to the artery were then stripped away. This then afforded the critical view. Three clips were placed proximally and distally on the duct and artery. Gallbladder was then removed from the liver bed with no further difficulty utilizing cautery. Specimen was placed within an EndoCatch bag. Liver bed was inspected. It was hemostatic. Clips were inspected. They appeared to be intact. There is no bleeding or leakage noted from the area of the clips. Right upper quadrant was irrigated until clear. Trocars were then removed under direct visualization. There was no bleeding noted from the peritoneum. Abdomen was then completely desufflated. Ariana trocar was removed and EndoCatch bag was removed with specimen intact. Small stones were palpated. Kochers were placed on the fascia of our infraumbilical port. Previously placed 0 Vicryl stitches were removed and a #0 Vicryl stitch was placed in solztj-so-yjufk fashion with excellent approximation of the fascia. An additional 10 mL of 0.5% Marcaine were injected in the fascia. All wounds were then closed with 4-0 Monocryl. A total of 50 mL, 0.5% Marcaine were used to anesthetize the wounds. Wounds were then cleansed and covered with Mastisol, Steri-Strips, 4 x 4's, and a Tegaderm. The patient was then allowed to awaken from anesthesia, was extubated and transported to the recovery room with no further difficulties. Counts were correct x 2 at the [place] [address] OPERATIVE REPORT Name: ONEL PAULINO [id number] Admission: 02/05/18 Attend Phys: Leonora Tejada DO Discharge: Date of : 59 Report #: [id number] Of note, a magnet was placed over his defibrillator during the case and the defibrillator will be interrogated prior to leaving the hospital. <ELECTRONICALLY SIGNED> By: Leonora Tejada DO 02/11/18 0851 1503 1616Clolis Tejada DO /nt
== END | disposition home or self-care (01) ==
LOC: M.SUR 08:40
DX: K80.10 Calculus of gallbladder with chronic cholecystitis without obstruction (principal); I10 Essential (primary) hypertension; E11.9 Type 2 diabetes mellitus without complications; I25.10 Atherosclerotic heart disease of native coronary artery without angina pectoris; I25.2 Old myocardial infarction; E78.00 Pure hypercholesterolemia, unspecified; Z98.890 Other specified postprocedural states; M19.90 Unspecified osteoarthritis, unspecified site; Z79.899 Other long term (current) drug therapy; Z95.1 Presence of aortocoronary bypass graft; Z95.2 Presence of prosthetic heart valve; Z95.5 Presence of coronary angioplasty implant and graft; Z86.73 Personal history of transient ischemic attack (TIA), and cerebral infarction without residual deficits; Z95.0 Presence of cardiac pacemaker; Z88.0 Allergy status to penicillin; Z88.8 Allergy status to other drugs, medicaments and biological substances; Z79.82 Long term (current) use of aspirin; Z79.4 Long term (current) use of insulin; Z79.891 Long term (current) use of opiate analgesic

== ENCOUNTER → 2018-05-16 | Outpatient (CLI) | payer OTHER ==
[2018-05-16 11:15] VITALS: BP 164/68
--- NOTE | 2018-05-16 11:51 | NUR ---
Pt arrived in recovery area at 1115 from post- myelogram. Pt in cart with HOB up 30 degrees. Pt c/o pain in lower back and given hydrocodone 5/325mg one tablet. Pt given crackers and water as well as a soda.
[2018-05-16 12:15] VITALS: BP 168/89
--- NOTE | 2018-05-16 12:18 | NUR ---
Pt finished 2 cans if soda, stated pain is better and down to a level 2. Pt sat up on the side of the bed, no increase in pain or head ache noted. Dicharge instructions given to pt and family. Assisted pt getting dressed. Out for home in w/c to car.
== END | disposition home or self-care (01) ==
LOC: M.RAD 05-13 14:48
DX: M48.02 Spinal stenosis, cervical region (principal); M54.12 Radiculopathy, cervical region; I10 Essential (primary) hypertension; E11.9 Type 2 diabetes mellitus without complications; I25.2 Old myocardial infarction; Z95.1 Presence of aortocoronary bypass graft; Z95.5 Presence of coronary angioplasty implant and graft; Z88.0 Allergy status to penicillin; Z79.01 Long term (current) use of anticoagulants; Z88.8 Allergy status to other drugs, medicaments and biological substances; Z79.899 Other long term (current) drug therapy; Z79.4 Long term (current) use of insulin; Z79.82 Long term (current) use of aspirin; Z95.2 Presence of prosthetic heart valve

== ENCOUNTER 2018-06-11 23:47 | Emergency (ER) | payer OTHER ==
[~2018-06-11] VITALS: Ht 175.3 cm; Wt 84.8 kg
[2018-06-12 00:12] LABS: ABSOLUTE EOSINOPHILS 0.1 thou/uL (0.0-0.7); ABSOLUTE LYMPHOCYTES 1.7 thou/uL (0.8-5.3); ABSOLUTE MONOCYTES 0.4 thou/uL (0.0-1.2); ABSOLUTE NEUTROPHILS 3.3 thou/uL (1.6-8.1); BASOPHILS 0.5 %; EOSINOPHILS 1.3 %; HEMATOCRIT 39.1 % (42.0-52.0); HEMOGLOBIN 13.4 gm/dL (14.0-18.0); LYMPHOCYTES 31.3 %; MCH 28.2 pg (26.0-34.0); MCHC 34.2 g/dL (28.0-37.0); MCV 82.5 fL (80.0-100.0); MONOCYTES 7.3 %; MPV 7.7 fl. (7.2-11.1); NUCLEATED RBCS 0 /100WBC; PLATELET COUNT* 209 thou/uL (150-400); POLYS 59.6 %; RBC 4.74 mil/uL (4.50-6.00); WBC 5.5 thou/uL (4.0-11.0)
[2018-06-12 00:48] LABS: ANION GAP 6 mmol/L (7-16); BUN 26 mg/dL (7-18); CALCIUM 10.3 mg/dL (8.5-10.1); CHLORIDE 101 mmol/L (98-107); CO2 29 mmol/L (21-32); CREATININE 1.6 mg/dL (0.6-1.3); GLUCOSE 119 mg/dL (70-99); POTASSIUM 4.1 mmol/L (3.5-5.1); SODIUM 136 mmol/L (136-145)
[2018-06-12 00:58] LABS: ALBUMIN 3.9 g/dL (3.4-5.0); ALKALINE PHOSPHATASE 79 U/L (46-116); LIPASE 142 U/L (73-393); SGOT 35 U/L (15-37); SGPT 54 U/L (30-65); TOTAL BILIRUBIN 0.5 mg/dL (<0.1-1.0); TROPONIN-I LEVEL <0.06 ng/mL (<0.06)
[2018-06-12 02:22] LABS: URINE BILIRUBIN NEGATIVE (Negative); URINE BLOOD NEGATIVE (Negative); URINE CLARITY CLEAR; URINE COLOR YELLOW; URINE GLUCOSE-RANDOM 3+ (Negative); URINE KETONES NEGATIVE (Negative); URINE LEUKOCYTES-REFLEX NEGATIVE (Negative); URINE NITRITE-REFLEX NEGATIVE (Negative); URINE PROTEIN NEGATIVE (Negative); URINE SPECIFIC GRAVITY 1.025 (1.005-1.030); URINE UROBILINOGEN 0.2 E.U./dl (0.2-1.0)
[2018-06-12 02:45] VITALS: BP 144/78
--- NOTE | 2018-06-12 11:08 | EKG ---
[place] [address] ELECTROCARDIOGRAM REPORT Name: ONEL PAULINO Room: [facility]#: [id number] Admission: 06/11/18 Attend Phys: Discharge: 06/12/18 Date of : 59 Report #: [id number] THIS REPORT FOR: //name// [facility] ED Test Date: 2018-06-12 Test Time: 00:30:36 Pat Name: ONEL PAULINO Department: Room: Gender: M Claims Adjuster Supervisor: JOSE : 1955 Requested By: Yana Linn Order Number: [id number] MD: Александр Vega Measurements Intervals [place] Rate: 73 P: 56 ID: [id number] QRS: -19 QRSD: 158 T: 107 QT: 458 QTc: 505 Interpretive Statements Sinus rhythm Left bundle branch block Baseline wander in lead(s) V1 Compared to ECG 01/13/2018 22:56:39 No significant changes Electronically Signed On 06-12-2018 11:07:57 CDT by Александр Vega [email or web address] <ELECTRONICALLY SIGNED> By: Александр Vega MD, FAC 06/12/18 1107 0030 0030 Александр Vega MD, [facility] /EPI
== END 2018-06-12 02:46 | disposition home or self-care (01) ==
LOC: M.ERS 23:47
PROVIDERS: Emergency Medicine
DX: E11.65 Type 2 diabetes mellitus with hyperglycemia (principal); E86.0 Dehydration; I10 Essential (primary) hypertension; M19.90 Unspecified osteoarthritis, unspecified site; E78.00 Pure hypercholesterolemia, unspecified; Z95.0 Presence of cardiac pacemaker; I25.810 Atherosclerosis of coronary artery bypass graft(s) without angina pectoris; Z88.0 Allergy status to penicillin; Z88.8 Allergy status to other drugs, medicaments and biological substances

== ENCOUNTER → 2019-02-25 | Outpatient (CLI) | payer OTHER ==
--- NOTE | 2019-02-25 13:18 | 2DMMODE ---
[place] [address] 2 D/M-MODE ECHOCARDIOGRAM Name: JOSEFINATOVAONEL [facility] [id number] Admission: 02/25/19 Attend Phys: Brandon Lynch, Discharge: Date of : 59 Date of Service: 02/25/19 1317 Report #: [id number] THIS REPORT FOR: //name// APPROVED REPORT Study performed: 02/25/2019 11:00:54 EXAM: Comprehensive 2D, Doppler, and color-flow Echocardiogram Patient Location: Out-Patient BSA: 1.99 HR: 74 bpm BP: 140/78 mmHg Other Information Study Quality: Good Indications Aortic Valve Disease Congestive Heart Failure Prosthetic Valve Pacemaker Chest Pain 2D Dimensions IVSd: 13.37 (7-11mm) LVOT Diam: 17.60 (18-24mm) LVDd: 43.37 mm PWd: 13.44 (7-11mm) Ascending Ao: 29.73 (22-36mm) LVDs: 30.64 (25-40mm) Aortic Root: 22.34 mm Volumes Left Atrial Volume (Systole) LA ESV Index: 41.10 mL/m2 Aortic Valve AoV Peak Antelmo.: 2.66 m/s AO Peak Gr.: 28.40 mmHg LVOT Max P.51 mmHg AO Mean Gr.: 15.69 mmHg LVOT Mean P.78 mmHg LVOT Max V: 0.94 m/s AO V2 VTI: 52.65 cm LVOT Mean V: 0.62 m/s SHAHLA (VTI): 0.85 cm2 LVOT V1 VTI: 18.44 cm Mitral Valve E/A Ratio: 1.39 [place] [address] 2 D/M-MODE ECHOCARDIOGRAM Name: ONEL PAULINO [facility] [id number] Admission: 02/25/19 Attend Phys: Brandon Lynch, Discharge: Date of : 59 Date of Service: 02/25/19 1317 Report #: [id number] MV Decel. Time: 136.48 ms MV E Max Antelmo.: 0.85 m/s MV PHT: 39.58 ms MVA (PHT): 5.56 cm2 TDI E/Lateral E': 12.14 E/Medial E': 12.14 Medial E' Antelmo.: 0.07 m/s Lateral E' Antelmo.: 0.07 m/s Pulmonary Valve PV Peak Antelmo.: 0.88 m/s PV Peak Gr.: 3.09 mmHg Tricuspid Valve RAP Estimate: 10.00 mmHg TR Peak Gr.: 10.10 mmHg RVSP: 20.10 mmHg PA Pressure: 20.10 mmHg Left Ventricle The left ventricle is normal size. There is normal LV segmental wall motion. Moderate concentric left ventricular hypertrophy. Left ventricular systolic function is normal. The left ventricular ejection fraction is within the normal range. LVEF is 55-60%. The left ventricular diastolic function is normal. Right Ventricle The right ventricle is normal size. The right ventricular systolic function is normal. Device lead is present in the right ventricle. Atria Left atrium is mildly dilated. The right atrium size is normal. Aortic Valve Mild aortic valve sclerosis. Bioprosthetic aortic valve is present. Trace aortic regurgitation. Mild aortic stenosis. Mitral Valve Mild mitral annular calcification. Trace mitral regurgitation. No evidence of mitral valve stenosis. Tricuspid Valve The tricuspid valve is normal in structure. Trace tricuspid regurgitation[place] [address] 2 D/M-MODE ECHOCARDIOGRAM Name: ONEL PAULINO Room: [facility]#: [id number] Admission: 02/25/19 Attend Phys: Brandon Lynch, Discharge: Date of : 59 Date of Service: 02/25/19 1317 Report #: [id number] The pulmonary valve is normal in structure. Trace pulmonic regurgitation. Great Vessels The aortic root is normal in size. IVC is normal in size and collapses <50% with inspiration. Pericardium There is no pericardial effusion. <Conclusion> The left ventricle is normal size. Left ventricular systolic function is normal. The left ventricular ejection fraction is within the normal range. LVEF is 55-60%. The left ventricular diastolic function is normal. The right ventricle is normal size. Left atrium is mildly dilated. Mild aortic valve sclerosis. Trace aortic regurgitation. Mild aortic stenosis. Mild mitral annular calcification. Trace mitral regurgitation. No evidence of mitral valve stenosis. The tricuspid valve is normal in structure. The aortic root is normal in size. IVC is normal in size and collapses <50% with inspiration. There is normal LV segmental wall motion. Device lead is present in the right ventricle. Bioprosthetic aortic valve is present. <ELECTRONICALLY SIGNED> By: Donald Johnson MD, FACC 02/25/19 1317 16 16 Donald Johnson MD, FACC /INF
--- NOTE | 2019-02-25 16:50 | CARDNUC ---
[place] [address] CARDIAC NUCLEAR IMAGING REPORT Name: YASIRMAXONEL Room: [facility]#: [id number] Admission: 02/25/19 Attend Phys: Brandon Lynch, Discharge: Date of : 59 Date of Service: 02/25/19 1650 Report #: [id number] THIS REPORT FOR: //name// APPROVED REPORT Study performed: 02/25/2019 08:00:00 Indication: Chest pain, fatigue. Patient Location: Out-Patient Stress Tech: [facility] Stress Nurse: Denita Ballesteros RN Ht: 5 ft 9 in Wt: 182 lbs BSA: 1.99 m2 BMI: 26.87 Medical History Medical History: Angina, CAD s/p CABG, CAD s/p stent, Cardiac Arrest, Valve Replacement, , Diabetic Insulin, Fatigue, HTN, Hyperlipidemia, ICD, Weakness. Medications: ASA 81 Mg,Metoprolol, Atorvastatin, Novolog, Levemir. Allergies: Sulfa ABT, Penicillin, Heparin. Cardiac Risk Factors: Age, Diabetes (insulin), FHX of CAD, HTN, Hyperlipidemia, HX CABG, PCI, ICD. Previous Cardiac Procedures: CABG, ICD, PCI. Pretest Chest Pain Characteristics: No chest pain Exercise History: Indeterminate Physical Disabilities: Pacemaker, Generalized fatigue. Meds Held (24 hrs): Metoprolol held approx. 12 hours. Resting Data Rest SPECT myocardial perfusion imaging was performed in supine position 30 minutes following the intravenous injection of 10.5 mCi of Tc-99m Sestamibi. Time of rest injection: 008:25 The images were gated to evaluate regional wall motion and calculate left ventricular ejection fraction. Administration Route: IV Administration Site: Right Hand Pharmacologic Stress Pharmacologic stress test was performed by injecting Regadenoson 0.4 mg IV push over 10-15 seconds immediately followed by the intravenous injection of 31.7 mCi of Tc-99m Sestamibi. Time of stress injection: 09:50 [place] [address] CARDIAC NUCLEAR IMAGING REPORT Name: ONEL PAULINO Room: [facility]#: [id number] Admission: 02/25/19 Attend Phys: Brandon Lynch, Discharge: Date of : 59 Date of Service: 02/25/19 1650 Report #: [id number] Administration Route: IV Administration Site: Right Hand Heart Rate at time of stress injection: 95 bpm. Gated Stress SPECT was performed 40 minutes after stress injection. The images were gated to evaluate regional wall motion and calculate left ventricular ejection fraction. Prone imaging was performed. Stress Test Details Stress Test: Pharmacologic stress testing performed using 0.4 mg of regadenoson per 5 mL given IV over 10 seconds. Reason for pharmacologic stress test: ICD, Generalized fatigue.. HR Max Heart Rate (APMHR): 159 bpm Resting HR: 71 bpm Target HR (85% APMHR): 135 bpm Max HR Achieved: 95 bpm % of APMHR: 59 Recovery HR: 88 bpm BP Resting BP: 140/87 mmHg Max BP: 118/69 mmHg Recovery BP: 142/80 mmHg ECG Resting ECG: Paced Rhythm Stress ECG: Paced Rhythm ST Change: None Arrhythmia: None Recovery ECG: Paced Rhythm Recovery ST Change: None Recovery Arrhythmia: None Clinical Reason for Termination: Completed protocol Stress Symptoms: None Exercise duration: 0 min 0 sec Exercise capacity: 1.00 METs The patient tolerated Lexiscan infusion with no significant symptoms. Nurse Comments 63 year old male presented with significant cardiac history of cardiac arrest, CABG, ICD, PCI, Valve replacement and recent CP with increased fatigue. Due to ICD, patient performed a sitting Lexiscan, [place] [address] CARDIAC NUCLEAR IMAGING REPORT Name: ONEL PAULINO Room: [facility]#: [id number] Admission: 02/25/19 Attend Phys: Brandon Lynch, Discharge: Date of : 59 Date of Service: 02/25/19 1650 Report #: [id number] well tolerated. Recovery unremarkable with PO caffeine. Patient escorted by staff to Nuclear Medicine for images. Patient stable with no complaints at that time. Stress ECG Conclusion The baseline EKG show sinus rhythm with ventricular pacing. EKGs obtained during and post Lexiscan infusion show sinus rhythm with ventricular pacing. No significant EKG changes were noted. Study Quality Study: Good Artifact: Mild Diaphragmatic artifact Study Data At rest, the left ventricular ejection fraction was 70%.. Post stress, the left ventricular ejection was 46%.. TID = 1.22. Perfusion Myocardial perfusion images obtained in the supine position at rest and post Lexiscan stress show a moderate region of mild photopenia involving the inferior wall consistent with diaphragmatic attenuation artifact. Post stress prone imaging shows uniform uptake of the radioisotope throughout the myocardium. Wall Motion Gated study shows septal wall motion abnormality consistent with paced rhythm. No other significant wall motion abnormalities noted. Nuclear Conclusion ECG Findings: non-diagnostic Clinical Findings: negative for ischemia Nuclear Findings: negative for ischemia Exercise Capacity: not assessed Left Ventricular Function: preserved Risk Study: low Myocardial perfusion images show no defects to suggest infarct or ischemia. Left ventricular systolic function appears to be grossly preserved. The discrepances between resting and stress ejection fractions likely due to paced rhythm. Clinical correlation suggested. <Conclusion> The baseline EKG show sinus rhythm with [place] [address] CARDIAC NUCLEAR IMAGING REPORT Name: YASIRMAXONEL MOHAN Room: [facility] YESENIA Erazo#: [id number] Admission: 02/25/19 Attend Phys: Brandon Lynch, Discharge: Date of : 59 Date of Service: 02/25/19 1650 Report #: [id number] obtained during and post Lexiscan infusion show sinus rhythm with ventricular pacing. No significant EKG changes were noted. <ELECTRONICALLY SIGNED> By: Brandon Lynch MD, FACC 02/25/191649 49 49 Brandon Lynch MD, FACC /INF
== END ==
LOC: M.NUC 02-04 14:09
DX: I08.0 Rheumatic disorders of both mitral and aortic valves (principal); I11.0 Hypertensive heart disease with heart failure; I50.9 Heart failure, unspecified; I25.10 Atherosclerotic heart disease of native coronary artery without angina pectoris; E78.5 Hyperlipidemia, unspecified; Z88.2 Allergy status to sulfonamides; Z88.0 Allergy status to penicillin; Z95.5 Presence of coronary angioplasty implant and graft; Z82.49 Family history of ischemic heart disease and other diseases of the circulatory system; Z79.899 Other long term (current) drug therapy

== ENCOUNTER 2019-04-20 19:51 | Inpatient (IN) | payer OTHER ==
[~2019-04-20] VITALS: Ht 175.3 cm; Wt 86.6 kg
[~2019-04-20 19:51] MED LIST changes: -HYDROCODONE-AP1 EAC6 PO
[2019-04-20 19:52] VITALS: BP 93/55
[2019-04-20 20:12] LABS: ABSOLUTE LYMPHOCYTES 1.8 thou/uL (0.8-5.3); ABSOLUTE MONOCYTES 0.3 thou/uL (0.0-1.2); ABSOLUTE NEUTROPHILS 2.5 thou/uL (1.6-8.1); BASOPHILS 0.8 %; EOSINOPHILS 0.6 %; HEMATOCRIT 39.2 % (42.0-52.0); HEMOGLOBIN 13.4 gm/dL (14.0-18.0); LYMPHOCYTES 38.9 %; MCH 27.9 pg (26.0-34.0); MCHC 34.1 g/dL (28.0-37.0); MCV 81.8 fL (80.0-100.0); MONOCYTES 6.4 %; MPV 8.4 fl. (7.2-11.1); NUCLEATED RBCS 0 /100WBC; PLATELET COUNT* 200 thou/uL (150-400); POLYS 53.3 %; RBC 4.79 mil/uL (4.50-6.00); RDW-CV 13.6 % (10.5-14.5); WBC 4.7 thou/uL (4.0-11.0)
[2019-04-20 20:23] LABS: ANION GAP 12 mmol/L (7-16); BUN 27 mg/dL (7-18); CALCIUM 9.4 mg/dL (8.5-10.1); CHLORIDE 97 mmol/L (98-107); CO2 23 mmol/L (21-32); CREATININE 1.8 mg/dL (0.6-1.3); SODIUM 132 mmol/L (136-145)
[2019-04-20 20:25] LABS: GLUCOSE 514 mg/dL (70-99)
[2019-04-20 20:29] LABS: ALBUMIN 3.3 g/dL (3.4-5.0); ALKALINE PHOSPHATASE 91 U/L (46-116); SGOT 26 U/L (15-37); SGPT 50 U/L (30-65); TOTAL BILIRUBIN 0.4 mg/dL (<0.1-1.0); TOTAL PROTEIN 7.2 g/dL (6.4-8.2); TROPONIN-I LEVEL <0.06 ng/mL (<0.06)
[2019-04-20 20:46] LABS: BE -1.4 mmol/L (-2 to +3); PCO2 37.2 mmHg (35.0-45.0); pH 7.406 (7.340-7.450)
[2019-04-20 20:47] LABS: PO2 155.2 mmHg (75.0-100.0)
[2019-04-20 22:20] VITALS: BP 93/60
[2019-04-21 04:00] VITALS: BP 175/57
--- NOTE | 2019-04-21 05:24 | NUR ---
PATIENT ARRIVED ON UNIT AT APPROX 2240. ALERT AND ORIENTED TIMES FOUR. BLOOD GLUCAOSE AT THAT TIME 220. PATIENT NON- COMPLIANT WITH DIABETES MANAGEMENT HIS FAMILY WENT TO GET HIM FAST FOOD SOON HE SETTLED INTO HIS ROOM. COMLAINTS OF PAIN IN HIS NECK FROM OLD INJURIES AND PAIN MEDICATION THAT HE TAKES AT HOME HAS BEEN STARTED FOR 2 DOSES. ALL QUESTIONS BY PATIENT AND FAMILY ANSWERED. LICENSED PHYSICAL THERAPIST AND HOURLY ROUNDING COMLETED DOCUMENTED.
[2019-04-21 07:50] VITALS: BP 149/89
[2019-04-21 12:00] VITALS: BP 130/86
--- NOTE | 2019-04-21 12:43 | NUR ---
ORTHODONTIC LAB TECHNICIAN SPOKE TO THE PATIENT TO DISCUSS HIS HOME SITUATION, DISCHARGE PLANNING, AND TO INFORM OF THE ROLE OF CM. PATIENT IS ALERT, ORIENTED, INDEPENDENT AND ACTIVE. PATIENT WORKS AND DRIVES. PATIENT OWNS 0 DME. PATIENT HAS NO HX OF HH OR SNF. PATIENT RESIDES AT HOME WITH SPOUSE. PATIENT INFORMS THAT HE PLANS TO RETURN HOME AT D/C. NO NEEDS ANTICIPATED. LCM WILL REMAIN AVAILABLE TO ASSIST AND FOLLOW NEEDED.
--- NOTE | 2019-04-21 14:29 | EKG ---
[place] [address] ELECTROCARDIOGRAM REPORT Name: ONEL PAULINO Room: [address] ADM IN .R.#: [id number] Admission: 04/20/19 Attend Phys: Rafita Nicholson, Discharge: Date of : 59 Report #: [id number] THIS REPORT FOR: //name// [facility] ED Test Date: 2019-04-20 Test Time: 20:27:27 Pat Name: ONEL PAULINO Department: Room: [facility] Gender: Park Maintainer: MAURA : 1955 Requested By: Roseann Love Order Number: [id number] MD: Александр Vega Measurements Intervals [place] Rate: 95 P: 71 DE: 176 QRS: -24 QRSD: 164 T: 128 QT: 418 QTc: 526 Interpretive Statements Sinus rhythm Left bundle branch block Compared to ECG 06/12/2018 00:30:36 No significant changes Electronically Signed On 04-21-2019 14:29:17 CDT by Александр Vega [email or web address] <ELECTRONICALLY SIGNED> By: Александр Vega MD, FACC 04/21/19 1429 26 26 Александр Vega MD, [facility] /EPI
[2019-04-21 16:00] VITALS: BP 134/78
[2019-04-21] MEDS ORDERED: PERCOCET 10-321 EACH PO (16:50)
--- NOTE | 2019-04-21 17:25 | NUR ---
ASSUMED CARE OF PT AROUND 0730 THIS AM. REFER TO ASSESSMENT. DIFFICULTY TO MANAGE BLOOD SUGARS. PT REFUSED DINNER INSULIN D/T DROP FROM 300'S TO LOW 100'S FROM LUNCH INSULIN. PT REPORTS HE USUALLY HAS DIFFICULTY MANAGING BLOOD SUGARS AT HOME. NO OTHER CONCERNS AT THIS TIME. CLWR. WCTM.
[2019-04-21 20:00] VITALS: BP 104/70
[2019-04-22] VITALS: BP 131/80; BP 182/80
[2019-04-22 04:00] VITALS: BP 108/69
[2019-04-22 05:03] LABS: ABSOLUTE EOSINOPHILS 0.1 thou/uL (0.0-0.7); ABSOLUTE LYMPHOCYTES 1.9 thou/uL (0.8-5.3); ABSOLUTE MONOCYTES 0.2 thou/uL (0.0-1.2); ABSOLUTE NEUTROPHILS 2.6 thou/uL (1.6-8.1); BASOPHILS 0.6 %; EOSINOPHILS 2.6 %; HEMATOCRIT 37.5 % (42.0-52.0); LYMPHOCYTES 38.5 %; MCH 28.7 pg (26.0-34.0); MCHC 34.6 g/dL (28.0-37.0); MCV 83.1 fL (80.0-100.0); MPV 8.5 fl. (7.2-11.1); NUCLEATED RBCS 0 /100WBC; PLATELET COUNT* 192 thou/uL (150-400); POLYS 53.3 %; RBC 4.51 mil/uL (4.50-6.00); RDW-CV 14.1 % (10.5-14.5); WBC 4.9 thou/uL (4.0-11.0)
--- NOTE | 2019-04-22 05:22 | NUR ---
ASSUMED PATIENT CARE AT 1900. PATIENT ALERT AND ORIENTED TIMES FOUR. MINOR COMPLAINTS OF PAIN, DID NOT REQUEST ANY PAIN MEDICATION. TELEGRAPH AND TELETYPE OPERATOR AND HOURLY ROUNDING COMPLETED DOCUMENTED
[2019-04-22 05:29] LABS: CALCIUM 8.7 mg/dL (8.5-10.1); CREATININE 1.2 mg/dL (0.6-1.3); MAGNESIUM 2.1 mg/dL (1.8-2.4); PHOSPHORUS* 3.1 mg/dL (2.5-4.9); POTASSIUM 4.1 mmol/L (3.5-5.1)
[2019-04-22 07:30] VITALS: BP 137/85
[2019-04-22 12:03] VITALS: BP 138/80
[2019-04-22 15:46] VITALS: BP 131/86
[2019-04-22 15:59] LABS: URINE BILIRUBIN NEGATIVE (Negative); URINE BLOOD NEGATIVE (Negative); URINE CLARITY CLEAR; URINE COLOR YELLOW; URINE GLUCOSE-RANDOM 3+ (Negative); URINE KETONES NEGATIVE (Negative); URINE LEUKOCYTES-REFLEX NEGATIVE (Negative); URINE NITRITE-REFLEX NEGATIVE (Negative); URINE PROTEIN NEGATIVE (Negative); URINE UROBILINOGEN 0.2 E.U./dl (0.2-1.0)
--- NOTE | 2019-04-22 17:43 | NUR ---
ASSUMED PT CARE AT 0800. AOX4, UP AD ALEX. O2 SAT AT 90'S RA. PT COMPLAINS OF NECK PAIN. PAIN MEDS GIVEN. PT BLOOD SUGAR MONITOR. PT FOR GASTRIC EMPTYING STUDY TOMORROW. NPO MIDNIGHT. PT TRACING SR, BBB, 1ST DEGREE AV BLOCK ON PRESTO LOG OPERATOR. PT HAS PACEMAKER. PT LAST BM 04/20/19. ABDOMEN SOFT AND ROUND. LUNG SOUND CLEAR. PT U/A COLLECTED. VSS, ASSESMENT CHARTED. MEDS GIVEN PER MAR. HOURLY ROUNDING. WILL CONTINUE TO MONITOR.
[2019-04-22 20:39] VITALS: BP 155/93
[2019-04-23] VITALS: BP 151/85
[2019-04-23 04:00] VITALS: BP 155/93
--- NOTE | 2019-04-23 06:40 | NUR ---
PT IS ABLE TO COMMUNICATE HIS NEEDS TO STAFF WITHOUT DIFFICULTY. HE HAS DENIED THE NEED FOR PAIN MEDICATION UP TO THIS TIME. HE HAS BEEN NPO SINCE MIDNIGHT FOR A POSSIBLE GASTRIC EMPTYING TEST LATER TODAY.
[2019-04-23 08:00] VITALS: BP 141/85
--- NOTE | 2019-04-23 08:00 | NUR ---
ASSUMED PT CARE AT 0700, PT SITTING UP IN BED, CALL LIGHT IN REACH, UP AD ALEX. A&O X4, VSS, MANUFACTURING ENGINEERING TECHNICIAN TRACING SINUS RHYTHM WITH 1ST DEGREE AND BBB, PT REMAINS NPO FOR GASTRIC EMPTYING STUDY. DENIES ANY PAIN OR N/V AT THIS TIME. WILL CONT POC.
[2019-04-23 11:30] VITALS: BP 137/85
[2019-04-23 12:11] VITALS: BP 137/85
[2019-04-23] MEDS ORDERED: LANTUS SUBQ (14:18)
[2019-04-23] MEDS ORDERED: ZOFRAN ODT4 MG DISSOLVE (14:18)
[2019-04-23] MEDS ORDERED: HYDROCODONE-AP1 EAC6 PO (15:43)
--- NOTE | 2019-04-23 17:19 | NUR ---
PT HAD EPISODE OF HYPOGLYCEMIA, BS 64, ADMINISTERED OJ X3, BS INCREASED TO 80. PT ENCOURAGED TO EAT LUNCH. STATED FELT COLD AND SHAKY, SYMPTOMS SUBSIDED AFTER BS INCREASED TO 210. DR LEBRON NOTIFIED, NO NEW ORDERS. HOURLY ROUNDING COMPLETED. PT DISCHARGED AT APPROX 1646 VIA WHEEL CHAIR WITH NURSING STAFF AND AT SIDE. EDUCATED ON ALL DISCHARGE INSTRUCTIONS INCLUDING FOLLOW UP APPTS AND MEDICATIONS. IV AND FIELD CONSULTANT REMOVED.
== END 2019-04-23 17:11 | disposition home or self-care (01) | DRG 70 ==
LOC: M.ERS 19:51 → M.TBA-ER 21:43 → M.2W 21:43
PROVIDERS: Family Medicine; Personal Emergency Response Attendant; ADMIT Family Medicine
DX: G93.41 Metabolic encephalopathy (principal); E11.00 Type 2 diabetes mellitus with hyperosmolarity without nonketotic hyperglycemic-hyperosmolar coma (NKHHC); N17.0 Acute kidney failure with tubular necrosis; I50.32 Chronic diastolic (congestive) heart failure; F11.20 Opioid dependence, uncomplicated; I13.0 Hypertensive heart and chronic kidney disease with heart failure and stage 1 through stage 4 chronic kidney disease, or unspecified chronic kidney disease; M19.90 Unspecified osteoarthritis, unspecified site; E86.9 Volume depletion, unspecified; N18.3 Chronic kidney disease, stage 3 (moderate); E11.65 Type 2 diabetes mellitus with hyperglycemia; G89.29 Other chronic pain; M54.2 Cervicalgia; E11.40 Type 2 diabetes mellitus with diabetic neuropathy, unspecified; E11.22 Type 2 diabetes mellitus with diabetic chronic kidney disease; I25.10 Atherosclerotic heart disease of native coronary artery without angina pectoris; E78.00 Pure hypercholesterolemia, unspecified; Z86.73 Personal history of transient ischemic attack (TIA), and cerebral infarction without residual deficits; E11.319 Type 2 diabetes mellitus with unspecified diabetic retinopathy without macular edema; Z88.0 Allergy status to penicillin; Z88.8 Allergy status to other drugs, medicaments and biological substances; Z79.4 Long term (current) use of insulin; Z95.0 Presence of cardiac pacemaker; Z95.1 Presence of aortocoronary bypass graft; Z95.2 Presence of prosthetic heart valve; Z95.5 Presence of coronary angioplasty implant and graft; Z82.49 Family history of ischemic heart disease and other diseases of the circulatory system

== ENCOUNTER 2019-06-02 13:38 | Inpatient (IN) | payer OTHER ==
[~2019-06-02] VITALS: Ht 175.3 cm; Wt 93.0 kg
--- NOTE | ~2019-06-02 | EEG ---
[address] [address] EEG STUDY REPORT Name: LORAONEL MOHAN Room: [address] IN .R.#: [id number] Admission: 06/02/19 Attend Phys: Nalini Foster MD Discharge: Date of : 59 Report #: [id number] THIS REPORT FOR: //name// CC: Nalini Quick DATE OF SERVICE: 06/03/2019 DATE OF EE06/03/2019 This patient is being evaluated for episode of syncope. EEG is being done to evaluate the possibility of seizure. EEG was done by placing the electrode by standard 10-20 system of electrode placement. Both referential and sequential montages were used for recording. Background activity in this patient's EEG is about 8 Hz and 30 microvolt. The patient became drowsy and that is associated with bilateral slowing and vertex sharp waves. Photic stimulation is unremarkable. Throughout the record, no active epileptiform activity was noticed. IMPRESSION: This patient's EEG is intermixed with some theta range slowing on both sides. That is a nonspecific abnormality, which can occur with drowsiness, effect of psychotropic medication, dementia, etc. Clinical correlation is recommended. By: [id number] Lynch MD /nt
--- NOTE | ~2019-06-02 | CON ---
[address] [address] CONSULTATION Name: ONEL PAULINO Room: [address] IN M.R.#: [id number] Admission: 06/02/19 Attend Phys: Nalini Foster MD Discharge: Date of : 59 Report #: [id number] THIS REPORT FOR: //name// CC: Nalini Quick DATE OF SERVICE: 06/03/2019 HISTORY OF PRESENT ILLNESS: This is a 64-year-old male patient who was evaluated by me for an episode of syncope. The patient indicated that he was trying to stand up and her blood sugar was very high and it was thought that he may have been dehydrated. No seizure activity was noticed. No focal deficit was noticed. The patient has a pacemaker and he is going to be seen by Cardiology. REVIEW OF SYSTEMS: Indicate that the patient is a diabetic. His diabetes is mostly uncontrolled. He has a pacemaker and a valve replacement. According to the family, they have been MRI incompatible. In the past, he had a CT angiogram done in 2018 and that was mostly unremarkable except for some atherosclerotic disease. He follows up with his leather seasoner and they are monitoring his carotid. He does have a significant cardiac problem and he is going to be seen by leather seasoner. He is having visual disturbances for a month. 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 This is going on for a month. He had headaches in the past. He had a history of cardiac arrest. He has some knee problems. He denies any ENT, chest, respiratory, GI, , musculoskeletal, constitutional, dermatological, hematological, psychiatric, throat, allergic symptom associated with present symptomatology. PAST MEDICAL HISTORY: Positive for cardiac arrest. FAMILY HISTORY: Negative for early age stroke. SOCIAL HISTORY: He says he does not drink any alcohol or smoke. PHYSICAL EXAMINATION: The patient's examination indicates that this patient is alert, responsive, able to follow simple and complex command. His speech is intact. Cranial nerve examination 2-12 indicates that he appeared to have problem with the right visual field. It is going on at least for 1 week, is in the right eye, even in the left eye, he has problems. Sometimes, he says he sees double. His neuromuscular examination as checked for strength, sensation, reflexes and the tone is symmetrical, but his reflexes is absent in the lower extremities. There is no cerebellar sign. I could not look at the fundus. Pulses are difficult to feel. He has no edema, cyanosis or jaundice. Cardiac examination is unremarkable. No respiratory difficulty was noticed. Blood pressure is 135/81, respiration is 16, pulse is 74 and temperature is 97.5. [place] [address] CONSULTATION Name: ONEL PAULINO KATIEUJLIO CÉSAR Room: [address] IN .R.#: [id number] Admission: 06/02/19 Attend Phys: Nalini Foster MD Discharge: Date of : 59 Report #: [id number] This patient had a CT scan of the head, which appear mostly unremarkable. IMPRESSION: The patient's episode of dizziness and passing out was most likely non-neurologic. He already has a CT scan and I think we should await the cardiology workup. Concern in this patient is that he is having visual problems in the right eye. He is a diabetic and he does not go to Ophthalmology on a regular basis. If he is having diabetic retinopathy or some problem associated with that, that probably need to be addressed soon. I told them no survey workers supervisor comes here on a regular basis and they do not go to the survey workers supervisor on a regular basis. RECOMMENDATIONS: I will put a consult for an survey workers supervisor, but the main thing is he need to see them for that. I might mention his sed rate was done and that was unremarkable. By: [id number] Lynch MD /nt
[~2019-06-02 13:38] MED LIST changes: +HYDROCODONE-AP1 EAC6 PO; +LEVEMIR100 UNIT/1 SUBQ; +PERCOCET 10-321 EACH PO; +ZOFRAN ODT4 MG DISSOLVE
[2019-06-02 13:44] VITALS: BP 91/53
[2019-06-02] MEDS ORDERED: MOBIC15 MG PO (13:49)
[2019-06-02] MEDS ORDERED: FLEXERIL PO (13:49)
[2019-06-02] MEDS ORDERED: ZANAFLEX4 MG PO (13:50)
[2019-06-02 14:55] LABS: ANION GAP 7 mmol/L (7-16); BUN 22 mg/dL (7-18); CHLORIDE 101 mmol/L (98-107); CO2 29 mmol/L (21-32); CREATININE 1.6 mg/dL (0.6-1.3); GLUCOSE 460 mg/dL (70-99); POTASSIUM 4.7 mmol/L (3.5-5.1); SODIUM 137 mmol/L (136-145)
[2019-06-02 15:00] LABS: ABSOLUTE EOSINOPHILS 0.1 thou/uL (0.0-0.7); ABSOLUTE LYMPHOCYTES 1.4 thou/uL (0.8-5.3); ABSOLUTE MONOCYTES 0.2 thou/uL (0.0-1.2); ABSOLUTE NEUTROPHILS 2.2 thou/uL (1.6-8.1); BASOPHILS 0.6 %; EOSINOPHILS 1.8 %; HEMATOCRIT 38.1 % (42.0-52.0); HEMOGLOBIN 12.7 gm/dL (14.0-18.0); LYMPHOCYTES 35.8 %; MCH 28.3 pg (26.0-34.0); MCHC 33.2 g/dL (28.0-37.0); MCV 85.1 fL (80.0-100.0); MONOCYTES 4.7 %; MPV 8.4 fl. (7.2-11.1); NUCLEATED RBCS 0 /100WBC; PLATELET COUNT* 201 thou/uL (150-400); POLYS 57.1 %; RBC 4.47 mil/uL (4.50-6.00); RDW-CV 14.3 % (10.5-14.5); WBC 3.9 thou/uL (4.0-11.0)
[2019-06-02 15:04] LABS: ALBUMIN 3.6 g/dL (3.4-5.0); ALKALINE PHOSPHATASE 83 U/L (46-116); SGOT 32 U/L (15-37); SGPT 53 U/L (30-65); TOTAL BILIRUBIN 0.5 mg/dL (<0.1-1.0); TOTAL PROTEIN 7.7 g/dL (6.4-8.2); TROPONIN-I LEVEL <0.06 ng/mL (<0.06)
[2019-06-02 15:25] LABS: URINE BILIRUBIN NEGATIVE (Negative); URINE BLOOD NEGATIVE (Negative); URINE CLARITY CLEAR; URINE COLOR YELLOW; URINE GLUCOSE-RANDOM 3+ (Negative); URINE KETONES NEGATIVE (Negative); URINE LEUKOCYTES-REFLEX NEGATIVE (Negative); URINE NITRITE-REFLEX NEGATIVE (Negative); URINE PROTEIN NEGATIVE (Negative); URINE UROBILINOGEN 0.2 E.U./dl (0.2-1.0)
[2019-06-02 19:49] VITALS: BP 119/76
[2019-06-02 20:01] VITALS: BP 124/75
[2019-06-03 00:09] VITALS: BP 148/88
--- NOTE | 2019-06-03 03:37 | NUR ---
RECEIVED PT FROM ER PER CART AT APPROX 2000 ACCOMPANIED BY CHEPE NEWTON. PT IS AWAKE AND ORIENTED X4. VSS ON RA. 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 PT DENIES PAIN/DISCOMFORT. ADMISSION ASSESSMENT DONE AND CHARTED. PT ADVISED ON CARB CONTROL DIET, PT ORIENTED ON ROOM SET UP AND ADVISED ON THE USE OF CALL LIGHT. FALL PRECAUTIONS IN PLACE. MEDS GIVEN PER JAN. HOURLY ROUNDING DONE FOR PT SAFETY.
[2019-06-03 04:12] VITALS: BP 125/78
[2019-06-03 05:09] LABS: GLYCOHEMOGLOBIN (HGB A1C) 13.7 % (4.8-5.6)
[2019-06-03 05:40] LABS: ABSOLUTE EOSINOPHILS 0.1 thou/uL (0.0-0.7); ABSOLUTE LYMPHOCYTES 1.9 thou/uL (0.8-5.3); ABSOLUTE MONOCYTES 0.3 thou/uL (0.0-1.2); ABSOLUTE NEUTROPHILS 2.4 thou/uL (1.6-8.1); BASOPHILS 0.6 %; EOSINOPHILS 2.7 %; HEMATOCRIT 36.5 % (42.0-52.0); HEMOGLOBIN 12.4 gm/dL (14.0-18.0); LYMPHOCYTES 38.8 %; MCH 28.5 pg (26.0-34.0); MCHC 33.8 g/dL (28.0-37.0); MCV 84.3 fL (80.0-100.0); NUCLEATED RBCS 0 /100WBC; PLATELET COUNT* 209 thou/uL (150-400); POLYS 50.9 %; RBC 4.34 mil/uL (4.50-6.00); RDW-CV 14.2 % (10.5-14.5); WBC 4.8 thou/uL (4.0-11.0)
[2019-06-03 05:57] LABS: CALCIUM 8.9 mg/dL (8.5-10.1); CREATININE 1.1 mg/dL (0.6-1.3); POTASSIUM 4.6 mmol/L (3.5-5.1)
[2019-06-03 07:45] VITALS: BP 135/81
--- NOTE | 2019-06-03 10:26 | EKG ---
[place] [address] ELECTROCARDIOGRAM REPORT Name: ONEL PAULINO Room: [address] ADM IN .R.#: [id number] Admission: 06/02/19 Attend Phys: Nalini Foster MD Discharge: Date of : 59 Report #: [id number] THIS REPORT FOR: //name// [facility] ED Test Date: 2019-06-02 Test Time: 15:06:57 Pat Name: ONEL COOLEYCARLTOVA Department: Room: [facility] Gender: M Warp Yarn Sorter: : 1955 Requested By: Roseann Love Order Number: [id number] MD: Bharath Gallo Measurements Intervals [place] Rate: 58 P: 24 CO: 181 QRS: -47 QRSD: 151 T: 179 QT: 489 QTc: 481 Interpretive Statements Sinus rhythm Left bundle branch block Electronically Signed On 06-03-2019 10:26:34 CDT by Bharath Gallo [email or web address] <ELECTRONICALLY SIGNED> By: Bharath Gallo MD, [facility] 06/03/19 1026 1506 1506 Bharath Gallo MD, FACC /EPI
--- NOTE | 2019-06-03 10:26 | EKG ---
[place] [address] ELECTROCARDIOGRAM REPORT Name: ONEL PAULINO Room: [address] ADM IN M.R.#: [id number] Admission: 06/02/19 Attend Phys: Nalini Foster MD Discharge: Date of : 59 Report #: [id number] THIS REPORT FOR: //name// [facility] ED Test Date: 2019-06-02 Test Time: 14:55:19 Pat Name: ONEL PAULINO Department: Room: [address] Gender: M Supervisor Central Supply: : 1955 Requested By: Roseann Love Order Number: [id number] Stella MD: Bharath Gallo Measurements Intervals [place] Rate: 57 P: 24 OK: 187 QRS: -44 QRSD: 150 T: 197 QT: 504 QTc: 491 Interpretive Statements Incomplete analysis due to missing data in precordial lead(s) Sinus bradycardia Left bundle branch block Baseline wander in lead(s) V2 Missing lead(s): V6 Compared to ECG 04/20/2019 20:27:27 rate slowed Electronically Signed On 06-03-2019 10:25:58 CDT by Bharath Gallo [email or web address] <ELECTRONICALLY SIGNED> By: Bharath Gallo MD, [facility] 06/03/19 1025 1455 1455 Bharath Gallo MD, FAC /EPI
[2019-06-03 12:00] VITALS: BP 105/67
[2019-06-03 16:00] VITALS: BP 145/75
[2019-06-03 20:00] VITALS: BP 146/92
[2019-06-04] VITALS: BP 150/92
--- NOTE | 2019-06-04 02:21 | NUR ---
PT ALERT ORIENTED. UP TO BR. ON RA. DENIES PAIN. IVF DC'D AT 2330 WHEN BAG CURRENT BAG FINISHED INFUSING.
[2019-06-04 04:00] VITALS: BP 139/80
[2019-06-04 07:10] VITALS: BP 164/93
[2019-06-04 08:26] VITALS: BP 164/93
--- NOTE | 2019-06-04 09:55 | NUR ---
INITAL ASSESSMENT COMPLETED CHARTED. TRACING SR WITH BBB. VSS. PT MITCHELL PAIN. PT UP ADLIB WITH STEADY GAIT. HOURLY ROUNDING IN PLACE FOR PT SAFETY. CLWR.
[2019-06-04] MEDS ORDERED: CELEBREX 200 M200 M1 PO (10:43)
[2019-06-04] MEDS ORDERED: BYDUREON P2 MG/0.65 SUBQ (13:29)
[2019-06-04 13:51] VITALS: BP 164/93
--- NOTE | 2019-06-04 17:32 | CON ---
[address] [address] CONSULTATION Name: ONEL PAULINO Room: [address] IN M.R.#: [id number] Admission: 06/02/19 Attend Phys: Nalini Foster MD Discharge: 06/04/19 Date of : 59 Report #: [id number] THIS REPORT FOR: //name// CC: Nalini Quick MD DATE OF SERVICE: 06/03/2019 HISTORY OF PRESENT ILLNESS: The patient is a 64-year-old black male who I was asked to see in the hospital today after a syncopal spell. The patient has an extensive past medical history. He actually suffered a cardiac arrest in 2012 and eventually had a defibrillator implanted. He had a stent placed in the circumflex artery. Two years ago, he was found to have progression of his coronary artery disease as well as significant aortic stenosis. In 02/2017, he underwent aortic valve replacement with tissue valve and 2-vessel coronary artery bypass surgery at . His postoperative course was complicated by prolonged intubation. He also suffered heparin-induced thrombocytopenia. He developed renal failure. He developed a prolonged ileus. However, he eventually ____ all his issues, he was discharged. He has actually been doing well. He continues to have his ICD checked at home by his transmitter. I actually saw him in the clinic last October when he was doing well. He actually just saw my nurse practitioner in January when he was doing well. He does not exercise on a regular basis. He works nightshifts. He has been home last few days. Yesterday, he was at home sitting in a chair when he stood up, he then got lightheaded, fell to the ground. His brought him to the hospital. He was admitted. He denied any recent vomiting, bleeding, fever or cough. He denied palpitations. There is no discharge of his defibrillator. PAST MEDICAL HISTORY: Significant for cholecystectomy. He has a history of hypertension, hyperlipidemia. No history of diabetes. MEDICATIONS: Consist of aspirin, Lipitor, Cymbalta, Neurontin, insulin, Toprol, lisinopril. ALLERGIES: He has allergy to PENICILLIN and SULFA DRUGS. FAMILY HISTORY: His mom had heart disease. SOCIAL HISTORY: He is . He and his live in [place]. 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 Nonsmoker. No alcohol abuse. REVIEW OF SYSTEMS: He has had no history of stroke, asthma, peptic ulcer disease, liver disease, cancer. He does have chronic neck pain. He is actually scheduled to have neck [place] [address] CONSULTATION Name: ONEL PAULINO Room: [address] IN M.R.#: [id number] Admission: 06/02/19 Attend Phys: Nalini Foster MD Discharge: 06/04/19 Date of : 59 Report #: [id number] PHYSICAL EXAMINATION: GENERAL: Revealed an elderly male, lying in bed, appeared in no distress. VITAL SIGNS: His blood pressure 100/70, pulse 66. He is afebrile. HEENT: He is anicteric. Conjunctivae pink. Mucous membranes moist. NECK: Neck veins do not appear distended. No carotid bruit. Gradient systolic murmur is noted in the carotids. Neck was supple. CHEST: Clear to auscultation. CARDIOVASCULAR: Regular rate and rhythm, grade 3 mid peaking systolic ejection murmur along the left sternal border. ABDOMEN: Soft. EXTREMITIES: Had no edema. Dorsalis pedis pulse cannot be palpated. SKIN: Cool and dry. NEUROLOGIC: Nonfocal. LABORATORY DATA: His ECG shows a sinus rhythm with a left bundle-branch block. His workup: He actually had a nuclear stress test just in February that showed ejection fraction of 50% with inferior photopenia consistent with diaphragmatic attenuation. There is no evidence of ischemia. He had an echocardiogram done in February that showed ejection fraction of 55% with mild stenosis of the bioprosthetic aortic valve with peak gradient of 28 mmHg. Left atrium is mildly dilated. There is only trace aortic insufficiency. His x-rays, CT scan of the head was performed in the Emergency Room yesterday that showed no acute abnormalities. Previous lab work done included CT angiogram of the neck prior to his surgery that showed less than 50% stenosis. His lab work: Sodium 142, BUN 21, creatinine 1.0, glucose 136. Liver function studies were normal. Troponin 0.06. BNP 30. His TSH 1.2. White blood cell count was 4.8, hemoglobin 12.4. IMPRESSION AND RECOMMENDATIONS: 1. Syncopal spell. Suspect vasovagal. I will interrogate the defibrillator see if he had any discharges. 2. Coronary artery disease. Previous bypass surgery. I would continue aspirin 81 mg a day. 3. Status post aortic valve replacement using tissue valve. Valve appears to be functioning normally. 4. Hypertension. Blood pressure noted to be low. I would continue beta-gavino, but I would stop his JACOB inhibitor. 5. Hyperlipidemia. The patient is on a statin drug. 6. Recent implantation of defibrillator. No recent discharges. 7. Diabetes. 8. Neck pain. I would hold off surgery at this time and reschedule at a later date. <ELECTRONICALLY SIGNED> By: Bharath Gallo MD, FACC 06/04/19 1732 1650 0210David Lea Gallo MD, FAC /nt
== END 2019-06-04 14:12 | disposition home or self-care (01) | DRG 682 ==
LOC: M.ERS 13:38 → M.2W 17:17 → M.TBA-ER 17:17 → M.2W 20:15
PROVIDERS: Personal Emergency Response Attendant; ADMIT Family Medicine
DX: N17.9 Acute kidney failure, unspecified (principal); E11.00 Type 2 diabetes mellitus with hyperosmolarity without nonketotic hyperglycemic-hyperosmolar coma (NKHHC); I50.32 Chronic diastolic (congestive) heart failure; I13.0 Hypertensive heart and chronic kidney disease with heart failure and stage 1 through stage 4 chronic kidney disease, or unspecified chronic kidney disease; M19.90 Unspecified osteoarthritis, unspecified site; I25.10 Atherosclerotic heart disease of native coronary artery without angina pectoris; E78.00 Pure hypercholesterolemia, unspecified; E11.65 Type 2 diabetes mellitus with hyperglycemia; E78.5 Hyperlipidemia, unspecified; E11.40 Type 2 diabetes mellitus with diabetic neuropathy, unspecified; F11.90 Opioid use, unspecified, uncomplicated; G89.29 Other chronic pain; M54.2 Cervicalgia; E11.319 Type 2 diabetes mellitus with unspecified diabetic retinopathy without macular edema; E86.0 Dehydration; E11.22 Type 2 diabetes mellitus with diabetic chronic kidney disease; N18.2 Chronic kidney disease, stage 2 (mild); I25.2 Old myocardial infarction; Z95.0 Presence of cardiac pacemaker; Z95.1 Presence of aortocoronary bypass graft; Z79.01 Long term (current) use of anticoagulants; Z95.2 Presence of prosthetic heart valve; Z95.5 Presence of coronary angioplasty implant and graft; Z86.73 Personal history of transient ischemic attack (TIA), and cerebral infarction without residual deficits; Z88.0 Allergy status to penicillin; Z88.8 Allergy status to other drugs, medicaments and biological substances; Z90.49 Acquired absence of other specified parts of digestive tract; Z88.2 Allergy status to sulfonamides; Z82.49 Family history of ischemic heart disease and other diseases of the circulatory system; Z79.4 Long term (current) use of insulin

== ENCOUNTER 2019-07-01 14:39 | Inpatient (IN) | payer OTHER ==
[~2019-07-01] VITALS: Ht 175.3 cm; Wt 92.8 kg
[~2019-07-01 14:39] MED LIST changes: +BYDUREON P2 MG/0.65 SUBQ; +CELEBREX 200 M200 M1 PO; +FLEXERIL PO; +MOBIC15 MG PO; +ZANAFLEX4 MG PO
[2019-07-01 14:40] VITALS: BP 83/54
[2019-07-01 14:55] LABS: ABSOLUTE EOSINOPHILS 0.1 thou/uL (0.0-0.7); ABSOLUTE LYMPHOCYTES 1.4 thou/uL (0.8-5.3); ABSOLUTE MONOCYTES 0.3 thou/uL (0.0-1.2); ABSOLUTE NEUTROPHILS 1.8 thou/uL (1.6-8.1); BASOPHILS 0.7 %; EOSINOPHILS 2.7 %; HEMATOCRIT 38.6 % (42.0-52.0); HEMOGLOBIN 12.8 gm/dL (14.0-18.0); MCH 27.6 pg (26.0-34.0); MCHC 33.1 g/dL (28.0-37.0); MCV 83.5 fL (80.0-100.0); MONOCYTES 7.9 %; MPV 7.6 fl. (7.2-11.1); NUCLEATED RBCS 0 /100WBC; PLATELET COUNT* 208 thou/uL (150-400); POLYS 49.7 %; RBC 4.62 mil/uL (4.50-6.00); RDW-CV 13.8 % (10.5-14.5); WBC 3.5 thou/uL (4.0-11.0)
[2019-07-01 14:59] LABS: BE -4.6 mmol/L (-2 to +3); PCO2 VENOUS 40.5 mmHg (41.0-51.0); PO2 VENOUS 43.7 mmHg (35.0-45.0)
[2019-07-01 15:03] LABS: APTT 23.6 Seconds (25.0-31.3); INR 1.1; PROTIME 11.4 Seconds (9.20-11.50)
[2019-07-01 15:08] LABS: ANION GAP 7 mmol/L (7-16); BUN 23 mg/dL (7-18); CALCIUM 8.9 mg/dL (8.5-10.1); CHLORIDE 104 mmol/L (98-107); CO2 26 mmol/L (21-32); CREATININE 1.7 mg/dL (0.6-1.3); GLUCOSE 340 mg/dL (70-99); POTASSIUM 4.8 mmol/L (3.5-5.1); SODIUM 137 mmol/L (136-145)
[2019-07-01 15:22] LABS: ALBUMIN 3.3 g/dL (3.4-5.0); ALKALINE PHOSPHATASE 73 U/L (46-116); CK-MB MASS 3.8 ng/mL (<0.5-3.6); NT-PRO BRAIN NAT PEPTIDE 231 pg/mL (<300); SGOT 28 U/L (15-37); SGPT 52 U/L (30-65); TOTAL BILIRUBIN 0.6 mg/dL (<0.1-1.0); TOTAL PROTEIN 7.2 g/dL (6.4-8.2); TROPONIN-I LEVEL <0.06 ng/mL (<0.06)
--- NOTE | 2019-07-01 18:00 | NUR ---
ASSUMED PT CARE
[2019-07-01 18:15] VITALS: BP 114/70
[2019-07-01 18:26] LABS: URINE BILIRUBIN NEGATIVE (Negative); URINE BLOOD NEGATIVE (Negative); URINE CLARITY CLEAR; URINE COLOR YELLOW; URINE GLUCOSE-RANDOM 3+ (Negative); URINE KETONES NEGATIVE (Negative); URINE LEUKOCYTES-REFLEX NEGATIVE (Negative); URINE PROTEIN NEGATIVE (Negative); URINE SPECIFIC GRAVITY 1.015 (1.005-1.030); URINE UROBILINOGEN 0.2 E.U./dl (0.2-1.0)
[2019-07-01 18:29] LABS: URINE NITRITE-REFLEX POSITIVE (Negative)
[2019-07-01 18:30] VITALS: BP 141/86
--- NOTE | 2019-07-01 18:30 | NUR ---
RECEIVED REPORT FROM ER, PT AOX4, UP AD ALEX, O2 SAT 90'S RA. TELE IN PLACED. GET SITUATED TO ROOM. IV ACCESS INTACT. VSS, GIVE REPORT TO BRIDGET NEWTON.
[2019-07-01 18:37] LABS: BACTERIA-REFLEX >30 Many /HPF (None Seen); COARSE GRANULAR CASTS 0-3 Few /LPF (None Seen); CRYSTALS None Seen /LPF (None Seen); SQUAMOUS 0-3 Few /LPF (0-3); URINE RBC 0-2 Rare /HPF (0-2); URINE WBC-REFLEX 0-5 Rare /HPF (0-5)
[2019-07-01 20:30] VITALS: BP 154/89
[2019-07-02] VITALS: BP 135/72
[2019-07-02 04:00] VITALS: BP 135/78; BP 154/74
[2019-07-02 05:00] LABS: ABSOLUTE EOSINOPHILS 0.1 thou/uL (0.0-0.7); ABSOLUTE LYMPHOCYTES 1.7 thou/uL (0.8-5.3); ABSOLUTE MONOCYTES 0.3 thou/uL (0.0-1.2); ABSOLUTE NEUTROPHILS 2.2 thou/uL (1.6-8.1); BASOPHILS 0.4 %; EOSINOPHILS 2.6 %; HEMATOCRIT 36.2 % (42.0-52.0); LYMPHOCYTES 39.2 %; MCH 27.7 pg (26.0-34.0); MCHC 33.2 g/dL (28.0-37.0); MCV 83.5 fL (80.0-100.0); MONOCYTES 6.7 %; MPV 7.8 fl. (7.2-11.1); NUCLEATED RBCS 0 /100WBC; PLATELET COUNT* 193 thou/uL (150-400); POLYS 51.1 %; RBC 4.34 mil/uL (4.50-6.00); WBC 4.4 thou/uL (4.0-11.0)
[2019-07-02 05:16] LABS: ALBUMIN 2.9 g/dL (3.4-5.0); CALCIUM 8.4 mg/dL (8.5-10.1); CREATININE 1.1 mg/dL (0.6-1.3); POTASSIUM 3.9 mmol/L (3.5-5.1); TOTAL BILIRUBIN 0.4 mg/dL (<0.1-1.0); TOTAL PROTEIN 6.3 g/dL (6.4-8.2)
--- NOTE | 2019-07-02 06:29 | NUR ---
ADMISSION DOCUMENTED. PT ORIENTED TO ROOM, CALL LIGHT SHOWN, FALL AGREEMENT GONE OVER, PT STATED UNDERSTANDING. IV PATENT, FLUIDS INFUSING. NO REPORTS OF PAIN. WILL CONTINUE WITH PLAN OF CARE.
[2019-07-02 08:00] VITALS: BP 140/74
--- NOTE | 2019-07-02 10:13 | EKG ---
[place] [address] ELECTROCARDIOGRAM REPORT Name: ONEL PAULINO Room: [address] ADM IN .R.#: [id number] Admission: 07/01/19 Attend Phys: Mansoor Taylor Discharge: Date of : 59 Report #: [id number] THIS REPORT FOR: //name// [facility] ED Test Date: 2019-07-01 Test Time: 14:57:46 Pat Name: ONEL PAULINO Department: Room: [facility] Gender: M Lithostripper: JENNIFER : 1955 Requested By: Eliud Fuentes Order Number: [id number] MD: Brandon Lynch Measurements Intervals [place] Rate: 58 P: 26 GA: 170 QRS: 74 QRSD: 154 T: 243 QT: 536 QTc: 527 Interpretive Statements Sinus rhythm Left bundle-branch block Compared to ECG 06/02/2019 15:06:57 No significant changes noted Electronically Signed On 07-02-2019 10:12:48 CDT by Brandon Lynch [email or web address] <ELECTRONICALLY SIGNED> By: Brandon Lynch MD, [facility] 07/02/19 1012 1457 1457 Brandon Lynch MD, [facility] /EPI
--- NOTE | 2019-07-02 13:54 | NUR ---
ASSUMED PT CARE AT 0800, AOX4, UP AD ALEX. O2 SAT 90'S RA. DENIES PAIN. FOR DISCHARGE TODAY. PT FOR ACCU CHECK. VSS, AM ASSESSMENT CHARTED, MEDS GIVEN PER MAR. CALL LIGHT WITHIN REACH. WILL CONTINUE TO MONITOR.
[2019-07-02 14:02] VITALS: BP 140/74
--- NOTE | 2019-07-02 14:02 | NUR ---
Pt is A&O. Resides at home with family. Active and independent. No DME. No hx of HH or SNF. Goal is home at [place]. No needs anticipated.
== END 2019-07-02 14:30 | disposition home or self-care (01) | DRG 314 ==
LOC: M.ERS 14:39 → M.TBA-ER 15:48 → M.2W 15:48
PROVIDERS: Family Medicine; ADMIT Internal Medicine
DX: I95.9 Hypotension, unspecified (principal); N17.0 Acute kidney failure with tubular necrosis; I25.10 Atherosclerotic heart disease of native coronary artery without angina pectoris; I10 Essential (primary) hypertension; M19.90 Unspecified osteoarthritis, unspecified site; E78.00 Pure hypercholesterolemia, unspecified; E11.65 Type 2 diabetes mellitus with hyperglycemia; E78.5 Hyperlipidemia, unspecified; Z82.49 Family history of ischemic heart disease and other diseases of the circulatory system; Z80.9 Family history of malignant neoplasm, unspecified; Z95.1 Presence of aortocoronary bypass graft; Z95.5 Presence of coronary angioplasty implant and graft; Z95.0 Presence of cardiac pacemaker; Z95.2 Presence of prosthetic heart valve; Z86.73 Personal history of transient ischemic attack (TIA), and cerebral infarction without residual deficits; Z88.0 Allergy status to penicillin; Z88.8 Allergy status to other drugs, medicaments and biological substances; Z79.82 Long term (current) use of aspirin; Z79.899 Other long term (current) drug therapy

== ENCOUNTER 2020-06-24 11:28 | Observation (INO) | payer OTHER ==
[~2020-06-24] VITALS: Ht 175.3 cm; Wt 78.9 kg
[2020-06-24 11:45] LABS: ABSOLUTE EOSINOPHILS 0.1 thou/uL (0.0-0.7); ABSOLUTE LYMPHOCYTES 1.9 thou/uL (0.8-5.3); ABSOLUTE MONOCYTES 0.2 thou/uL (0.0-1.2); ABSOLUTE NEUTROPHILS 1.7 thou/uL (1.6-8.1); BASOPHILS 0.6 %; EOSINOPHILS 1.7 %; HEMATOCRIT 38.7 % (42.0-52.0); HEMOGLOBIN 13.1 gm/dL (14.0-18.0); MCH 28.2 pg (26.0-34.0); MCHC 33.8 g/dL (28.0-37.0); MCV 83.5 fL (80.0-100.0); MONOCYTES 5.9 %; MPV 8.1 fl. (7.2-11.1); NUCLEATED RBCS 0 /100WBC; PLATELET COUNT* 186 thou/uL (150-400); POLYS 42.8 %; RBC 4.64 mil/uL (4.50-6.00); RDW-CV 13.8 % (10.5-14.5)
[2020-06-24 11:49] VITALS: BP 178/98
[2020-06-24 11:54] LABS: CALCIUM 9.1 mg/dL (8.5-10.1); CREATININE 1.3 mg/dL (0.6-1.3); POTASSIUM 4.6 mmol/L (3.5-5.1)
[2020-06-24 12:05] LABS: ALBUMIN 3.9 g/dL (3.4-5.0); MAGNESIUM 2.2 mg/dL (1.8-2.4); TOTAL BILIRUBIN 0.5 mg/dL (<0.1-1.0); TOTAL PROTEIN 7.9 g/dL (6.4-8.2)
[2020-06-24 16:13] VITALS: BP 124/69
--- NOTE | 2020-06-24 16:38 | EKG ---
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
[2020-06-24 17:00] VITALS: BP 139/88
[2020-06-24 19:55] VITALS: BP 151/107
[2020-06-25] VITALS (7 sets, daily range): BP systolic 73–120; BP diastolic 43–71
[2020-06-25 09:09] LABS: ABSOLUTE EOSINOPHILS 0.1 thou/uL (0.0-0.7); ABSOLUTE LYMPHOCYTES 1.5 thou/uL (0.8-5.3); ABSOLUTE MONOCYTES 0.3 thou/uL (0.0-1.2); ABSOLUTE NEUTROPHILS 2.5 thou/uL (1.6-8.1); BASOPHILS 0.7 %; EOSINOPHILS 1.9 %; HEMATOCRIT 37.4 % (42.0-52.0); HEMOGLOBIN 12.8 gm/dL (14.0-18.0); LYMPHOCYTES 33.3 %; MCH 28.4 pg (26.0-34.0); MCHC 34.3 g/dL (28.0-37.0); MCV 82.9 fL (80.0-100.0); NUCLEATED RBCS 0 /100WBC; PLATELET COUNT* 183 thou/uL (150-400); POLYS 58.1 %; RBC 4.51 mil/uL (4.50-6.00); RDW-CV 14.2 % (10.5-14.5); WBC 4.4 thou/uL (4.0-11.0)
[2020-06-25 09:23] LABS: CALCIUM 8.6 mg/dL (8.5-10.1); CREATININE 1.3 mg/dL (0.6-1.3); POTASSIUM 4.3 mmol/L (3.5-5.1)
[2020-06-26] VITALS: BP 112/63
[2020-06-26 04:00] VITALS: BP 150/86
[2020-06-26 08:30] VITALS: BP 147/92
[2020-06-26] MEDS ORDERED: LEVEMIR100 UNIT/1 SUBQ (10:39)
[2020-06-26] MEDS ORDERED: PROTONIX40 M1 PO (10:40)
[2020-06-26 15:17] VITALS: BP 147/92
--- NOTE | 2020-06-27 15:19 | EKG ---
[place] [address] ELECTROCARDIOGRAM REPORT Name: TOÑO PAULINOI KATIEJULIO CÉSAR Room: [address] M.R.#: [id number] Admission: 06/24/20 Attend Phys: Yo Gonzales, Discharge: 06/26/20 Date of : 59 Date of Service: 06/25/20 1214 Report #: [id number] THIS REPORT FOR: //name// [facility] Test Date: 2020-06-25 Test Time: 12:14:58 Pat Name: ONEL PAULINO Department: Room: [address] Gender: M Batch Mixer: dmitriy : 1955 Requested By: Yo Gonzales Order Number: [id number] Stella MD: Bharath Gallo Measurements Intervals [place] Rate: 61 P: 46 MT: 172 QRS: 25 QRSD: 152 T: 152 QT: 506 QTc: 510 Interpretive Statements Sinus rhythm LBBB Compared to ECG 06/24/2020 11:31:42 No significant changes Electronically Signed On 06-27-2020 15:18:46 CDT by Bharath Gallo [email or web address] <ELECTRONICALLY SIGNED> By: Bharath Gallo MD, [facility] 06/27/20 1518 1214 1214 Bharath Gallo MD, [facility] /EPI
--- NOTE | 2020-06-27 16:37 | CON ---
[address] [address] CONSULTATION Name: ONEL PAULINO JULIO CÉSAR Room: [address] [place] Erazo#: [id number] Admission: 06/24/20 Attend Phys: Yo Gonzales MD Discharge: 06/26/20 Date of : 59 Report #: [id number] THIS REPORT FOR: //name// cc: Jeff Quick MD, Tuongvan T. MD ~ THIS REPORT FOR: //name// CC: Yo Quick MD DATE OF SERVICE: 06/24/2020 CARDIOLOGY CONSULTATION HISTORY OF PRESENT ILLNESS: The patient is a 65-year-old white male who I was asked to see in the Emergency Room after he complained of chest pain. The patient presented in 2012 suffering a cardiac arrest. He was on the ventilator and in a coma for a while. He eventually had a PEG tube placed. He had a stent placed in the circumflex artery. He had an ICD implanted. In 2017, he had progressive coronary artery disease and underwent 2-vessel bypass surgery and aortic valve replacement using tissue valve. Carotid Doppler study showed no significant stenosis. Nuclear stress test last year showed an ejection fraction 46%. Echocardiogram showed normal function of the aortic valve. He notes for the past 2 weeks, he has had a constant, sharp pain in his chest. There is no radiation of the pain. It is not related to exertion or meals. He denies shortness of breath, fever or cough. He has had no discharge of defibrillator. PAST MEDICAL HISTORY: Otherwise significant for cholecystectomy. He has had neck surgery. He has a history of diabetes, hypertension, hyperlipidemia. MEDICATIONS: Include aspirin, Lipitor, Cymbalta, Neurontin, insulin, metoprolol, Zanaflex. ALLERGIES: HE HAS AN ALLERGY TO PENICILLIN AND SULFA. FAMILY HISTORY: Mother had heart disease. SOCIAL HISTORY: He is . He and his live in [place]. 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 No smoking or alcohol abuse. REVIEW OF SYSTEMS: He apparently had previous evidence of a stroke by CT scan. No history of asthma, liver disease. He has chronic kidney disease. No cancer, no psychiatric illness or chronic skin condition. PHYSICAL EXAMINATION: [place] [address] CONSULTATION Name: ONEL PAULINO Room: [address] [place] Erazo#: [id number] Admission: 06/24/20 Attend Phys: Yo Gonzales MD Discharge: 06/26/20 Date of : 59 Report #: [id number] GENERAL: Revealed a middle-aged male, lying in bed. He appeared in no distress. VITAL SIGNS: He had a blood pressure of 170/80, pulse 70, he is afebrile. HEENT: He was anicteric. Conjunctivae pink. Mucous membranes moist. NECK: Veins do not appear distended. CHEST: Clear to auscultation. CARDIOVASCULAR: Regular rate and rhythm, grade 3 systolic ejection murmur. ABDOMEN: Soft. EXTREMITIES: Had no edema. SKIN: Warm and dry. RADIOLOGICAL DATA: ECG shows normal sinus rhythm with left bundle branch block, which is unchanged from previous electrocardiograms. The patient had a portable chest x-ray in the Emergency Room showed normal heart size, clear lung vela. LABORATORY DATA: Sodium 135, creatinine 1.3. Liver function studies were normal. Troponin 0.06. BNP 662. His white blood cell count 4.0, hemoglobin 13.1. IMPRESSION AND RECOMMENDATIONS: 1. Chest pain. Suspect noncardiac. No evidence of pneumonia. No recent trauma. Suspect gastrointestinal. 2. Diabetes. 3. Previous coronary artery bypass surgery. No symptoms of angina. 4. Hypertension. The patient is on a beta gavino. 5. Previous aortic valve replacement using tissue valve. 6. Hyperlipidemia. The patient is on a statin drug. 7. Previous implantation of defibrillator. No recent discharges. <ELECTRONICALLY SIGNED> By: Bharath Gallo MD, FACC 06/27/20 1637 1340 1516Dagrecia Gallo MD, FACC /nt
== END 2020-06-26 16:15 | disposition home or self-care (01) ==
LOC: M.ERS 11:28 → M.TBA-ER 12:22 → M.2W 16:30
PROVIDERS: Emergency Medicine Emergency Medical Services; ADMIT Internal Medicine; ATTEND Internal Medicine
DX: Z03.818 Encounter for observation for suspected exposure to other biological agents ruled out (principal); R07.89 Other chest pain; I25.10 Atherosclerotic heart disease of native coronary artery without angina pectoris; E11.319 Type 2 diabetes mellitus with unspecified diabetic retinopathy without macular edema; I10 Essential (primary) hypertension; E78.5 Hyperlipidemia, unspecified; Z95.2 Presence of prosthetic heart valve; Z95.5 Presence of coronary angioplasty implant and graft; Z79.4 Long term (current) use of insulin; Z79.82 Long term (current) use of aspirin; Z79.899 Other long term (current) drug therapy

== ENCOUNTER → 2021-12-19 | Outpatient (CLI) | payer OTHER ==
[~2021-12-19] MED LIST changes: +PROTONIX40 M1 PO
--- NOTE | 2021-12-19 17:11 | CARDNUC ---
[place] [address] CARDIAC NUCLEAR IMAGING REPORT Name: JOSEFINATOVAONEL [id number] Admission: 12/19/21 Attend Phys: Idalmis Ellsworth, Discharge: Date of : 59 Date of Service: 12/19/21 1711 Report #: [id number] THIS REPORT FOR: cc: Jeff Quick MD, Tuongvan T. MD Liston, Michael J. MD [facility] ~ ADDENDUM APPROVED REPORT Study performed: 12/19/2021 10:04:28 Exam: Nuclear Stress Test Indication: CAD s/p CABG Patient Location: Out-Patient Stress Nurse: Emmanuelle Simon RN Ht: 5 ft 9 in Wt: 182 lbs BSA: 1.99 m2 BMI: 26.87 Medical History Medical History: CAD s/p CABG, Diabetes, HTN, Hyperlipidemia, Valvular heart disease Medications: asa-81, atorvastatin, metoprolol, losartan Allergies: penicillin, sulfa Cardiac Risk Factors: Age, DM, HTN, Hyperlipidemia Previous Cardiac Procedures: CABG, av replacement Exercise History: Indeterminate Meds Held (24 hrs): metoprolol Stress Test Details Stress Test: Pharmacologic stress testing performed using 0.4 mg of regadenoson per 5 mL given IV over 10 seconds. Reason for pharmacologic stress test: LBBB. HR Resting HR: 79 bpm Max Heart Rate (APMHR): 156 bpm Max HR Achieved: 94 bpm Target HR (85% APMHR): 132 bpm % of APMHR: 60 Recovery HR: 80 bpm BP Resting BP: 153/94 mmHg Max BP: 127/[place] [address] CARDIAC NUCLEAR IMAGING REPORT Name: ONEL PAULINO KIMBERLEE Room: [employer]#: [id number] Admission: 12/19/21 Attend Phys: Idalmis Ellsworth, Discharge: Date of : 59 Date of Service: 12/19/21 1711 Report #: [id number] Resting ECG: Sinus Rhythm, LBBB Stress ECG: Sinus Rhythm, LBBB ST Change: None Arrhythmia: None Recovery ECG: Sinus Rhythm, LBBB Recovery ST Change: None Recovery Arrhythmia: None Clinical Reason for Termination: Completed protocol The patient tolerated Lexiscan infusion without significant cardiac complaint. Stress ECG Conclusion The baseline twelve-lead EKG shows sinus rhythm with left bundle branch block. EKGs obtained during and post Lexiscan infusion show sinus rhythm with left bundle branch block. There were no stress-induced arrhythmias. NM EXAM: Myocardial Perfusion REST/STRESS Resting Data Rest SPECT myocardial perfusion imaging was performed in supine position 45 minutes following the intravenous injection of 10.5 mCi of Tc-99m Sestamibi. Time of rest injection: 08:15 The images were gated to evaluate regional wall motion and calculate left ventricular ejection fraction. Administration Route: IV Administration Site: Right AC Pharmacologic Stress Pharmacologic stress test was performed by injecting Regadenoson 0.4 mg IV push followed by the intravenous injection of 32.0 mCi of Tc-99m Sestamibi. Time of stress injection: 10:05 Administration Route: IV Administration Site: Right AC Heart Rate at time of stress injection: 92 bpm. Gated Stress SPECT was performed 45 minutes after stress injection. The images were gated to evaluate regional wall motion and calculate left ventricular ejection fraction. Study Quality Study: [place] [address] CARDIAC NUCLEAR IMAGING REPORT Name: YASIRMAXONEL KIMBERLEE [facility] [id number] Admission: 12/19/21 Attend Phys: Idalmis Ellsworth, Discharge: Date of : 59 Date of Service: 12/19/21 1711 Report #: [id number] Artifact: Mild Diaphragmatic artifact Study Data At rest, the left ventricular ejection fraction was 52%.. Post stress, the left ventricular ejection was 44%.. TID = 1.08. Perfusion Perfusion images obtained in the supine position at rest and post Lexiscan stress show mild photopenia in the inferior wall that resolves completely with post-rest prone imaging consistent with diaphragmatic attenuation artifact. No other significant fixed or reversible defects are identified. Wall Motion There is mild to moderate global hypokinesis. Nuclear Conclusion ECG Findings: negative for ischemia Clinical Findings: negative for ischemia Nuclear Findings: negative for ischemia Exercise Capacity: not assessed Left Ventricular Function: abnormal Perfusion images show no defect to suggest infarct or ischemia. Left ventricular systolic function appears mild to moderately decreased. There is left ventricular systolic dyssynergy consistent with underlying bundle branch block. <Conclusion> The baseline twelve-lead EKG shows sinus rhythm with left bundle branch block. EKGs obtained during and post Lexiscan infusion show sinus rhythm with left bundle branch block. There were no stress-induced arrhythmias. <ELECTRONICALLY SIGNED> By: Brandon Lynch MD, FACC 12/19/211710 10 10 Brandon Lynch MD, FACC /INF
== END ==
LOC: M.NUC 12-01 15:22 → M.CRD 12-11 14:00 → M.NUC 12-11 14:00 → M.CRD 12-14 13:00 → M.NUC 12-14 13:00
PROVIDERS: ATTEND Nurse Practitioner
DX: I25.10 Atherosclerotic heart disease of native coronary artery without angina pectoris (principal)